=== PATIENT | female | born 1960 | race Caucasian/White ===

== ENCOUNTER 2024-01-06 09:43 | Outpatient (OUT) | payer OTHER, SELFPAY ==
--- NOTE | 2024-01-06 | ECG_ITS ---
The [facility] Test Date: 2024-01-06 Pat Name: Brenda Davis Department: Room: - Gender: Female [employer]: : 1960 Requested By: MARIANNE MENESES Order Number: [id number] Reading MD: MARIANNE MENESES Measurements Intervals [place] Rate: 72 P: 51 LA: 127 QRS: 47 QRSD: 81 T: 38 QT: 373 QTc: 409 Interpretive Statements SINUS RHYTHM LOW QRS VOLTAGE IN PRECORDIAL LEADS [QRS DEFLECTION < 1.0 mV IN CHEST LEADS] No previous ECG available for comparison Electronically Signed On 01-06-2024 20:09:15 EST by MARIANNE MENESES
--- NOTE | 2024-01-06 09:47 | XR_ITS ---
The [address] [address] Patient Name: BUCK ANDUJAR MRN: [id number] date: 1960 Sex: F Assigned Patient Location: [facility] Current Patient Location: [facility] Accession/Order Number: [id number] Exam Date: 01/06/2024 09:53 Report Date: 01/06/2024 10:35 At the request of: MARIANNE MENESES Procedure: XR chest 2V EXAM: Chest x-ray HISTORY: . Preop Exam For Internal Medicine Z01.818 . COMPARISON: None. TECHNIQUE: Frontal and lateral chest FINDINGS: Heart and vascularity are unremarkable. Lungs are free of focal infiltrates. Early spondylosis of the spine is noted. XR/XR chest 2V IMPRESSION: No acute heart or lung disease identified. Electronically authenticated by: AMISH NEWELL Date: 01/06/2024 10:35
[2024-01-06 10:57] LABS: Basophils Percent Auto 0.3 % (0.2-2.0); Eosinophils Absolute Auto 0.1 10^3/uL (0.0-0.7); Eosinophils Percent Auto 1.8 % (0.9-7.0); Hematocrit 44.5 % (36.0-48.0); Hemoglobin 14.5 g/dL (12.0-16.0); Immature Granulocytes Abs Auto 0.02 10^3/uL (0.00-0.03); Immature Granulocytes Pct Auto 0.3 % (0.0-0.5); Lymphocytes Absolute Auto 1.9 10^3/uL (1.2-3.8); Lymphocytes Percent Auto 26.1 % (20.5-60.0); Mean Corpuscular HGB Conc 32.6 g/dL (29.9-35.2); Mean Corpuscular Hemoglobin 29.9 pg (26.7-34.0); Mean Corpuscular Volume 91.8 fL (81.0-99.0); Mean Platelet Volume 9.5 fL (9.5-13.5); Monocytes Absolute Auto 0.8 10^3/uL (0.3-0.8); Monocytes Percent Auto 11.5 % (1.7-12.0); Neutrophils Absolute Auto 4.3 10^3/uL (1.4-6.5); Platelet Count 258 10^3/uL (150-450); Red Blood Count 4.85 10^6/uL (4.20-5.40); Red Cell Distribution Width 12.3 % (11.0-15.0); White Blood Count 7.2 10^3/uL (4.0-11.0)
[2024-01-06 11:56] LABS: Alanine Aminotransferase 29 U/L (14-59); Albumin Level 3.5 g/dL (3.4-5.0); Alkaline Phosphatase 100 U/L (46-116); Anion Gap 11.5; Aspartate Amino Transferase 15 U/L (15-37); BUN Creatinine Ratio 27.8; Bilirubin Total 0.5 mg/dL (0.2-1.0); Calcium 9.2 mg/dL (8.5-10.1); Carbon Dioxide 28.2 mmol/L (21.0-32.0); Chloride 106 mmol/L (98-107); Estimated GFR (African America >60 (>=60); Estimated GFR (Non-African Ame >60 (>=60); Globulin 3.5 g/dL; Glucose 95 mg/dL (74-106); Potassium 4.7 mmol/L (3.5-5.1); Sodium 141 mmol/L (136-145)
[2024-01-06 12:19] LABS: Bilirubin Urine NEGATIVE (NEGATIVE); Blood Urine TRACE-I (NEGATIVE); Clarity Urine CLEAR (CLEAR); Color Urine LT. YELLOW (YELLOW); Glucose Urine UA NEGATIVE (NEGATIVE); Ketones Urine NEGATIVE (NEGATIVE); Leukocyte Esterase Urine SMALL (NEGATIVE); Nitrite Urine NEGATIVE (NEGATIVE); Protein Urine NEGATIVE (NEG/TRACE); Specific Gravity Urine >=1.030 (1.005-1.025); Urobilinogen Urine 0.2 EU/dL (0.2-1.0)
[2024-01-06 12:38] LABS: Bacteria Urine TRACE #/HPF (NONE SEEN); Cast Seen? NONE SEEN #/LPF (NONE SEEN); Crystals Seen? None Seen #/HPF (None Seen); Mucus Urine TRACE (NONE SEEN); Squamous Epithelial Cell Urine MODERATE #/LPF (NONE/RARE)
== END 2024-01-06 09:44 | disposition home or self-care (01) ==
LOC: RAD 09:43
PROVIDERS: PCP Internal Medicine; Visit Provider Internal Medicine
DX: Z01.818 Encounter for other preprocedural examination (principal)
CPT/HCPCS: 36415; 71046; 80053; 81001; 85025; 93005

== ENCOUNTER 2025-01-18 11:56 | Outpatient (OUT) | payer MEDICARE, SELFPAY ==
--- OUTSIDE RECORDS SUMMARY | 2025-01-17 14:31 | XMS_ITS | CCD ---
Author Organization [facility] CliniSyid Care Team Providers Care Ribbon Weaver Name Role Phone ABIEL STARKS Unavailable Unavailable RAKAN NUÑEZ Unavailable Unavailable REQUEST, DR VITAL LISTED Admitting Unavaila ble REQUEST, NONE LISTED Attending Unavaila ble JOAQUIN, DR BLEDSOE Primary Care Unavailable REQUEST, NONE LISTED Consulting Unavaila ble Rakan Nuñez Unavailable Priscilla, Dr. Monreal Attending Provider DR LATIA NUÑEZ Primary Care Provider Unavailcoco NUÑEZ, DR JEFFERY Referring Provider Unavailable Priscilla, Dr. Monreal Attending Provider Priscilla, Dr. Monreal Referring Provider Priscilla, Dr. Monreal Other Provider RAKAN NUÑEZ Primary Care Provider Priscilla, Dr. Monreal Attending Provider Priscilla, Dr. Monreal Referring Provider Priscilla, Dr. Monreal Other Provider RAKAN NUÑEZ Primary Care Provider RAKAN NUÑEZ Primary Care Provider UnavailRAKAN Mulligan Referring Provider Unavailable Priscilla, Dr. Monreal Attending Provider DO Rakan Nuñez Primary Care Provider RAEJSH Mallory Attending Provider Rakan Nuñez DO Primary Care Provider Shawnee SOFTWOOD FALLER-CYuki Attending Provider Khalif Renee DO Attending Provider Rakan Nuñez Primary Care Unavailable Indira Renee Admitting Unavailable Indira Renee Attending Unavailable Rakan Nuñez Primary Care Unavailable Yuki Mallory Admitting Unavailable Yuki Mallory Attending Unavailable Rakan Nuñez Primary Care Unavailable Khalif Renee Admitting Unavailable Khalif Renee Attending Unavailable Rakan Nuñez Primary Care Unavailable Khalif Renee Admitting Unavailable Khalif Renee Attending Unavailable TAYETOKERI, INOCENCIA Primary Care Unavailable KREPSTOWSKI, INOCENCIA Referring Unavailable Ghazoul, Jocelin Attending Unavailable Ghazoul, Jocelin Attending Unavailable Ghazoul, Jocelin Referring Unavailable KREPSTOWSKI, INOCENCIA Primary Care Unavailable Ghazoul, Jocelin Attending Unavailable Ghazoul, Jocelin Attending Unavailable Ghazoul, Jocelin Attending Unavailable Ghazoul, Jocelin Consulting Unavailable KREPSTOWSKI, INOCENCIA Primary Care Unavailable Ghazoul, Jocelin Attending Unavailable Ghazoul, Jocelin Referring Unavailable Ghazoul, Jocelin Attending Unavailable Ghazoul, Jocelin Attending Unavailable Ghazoul, Jocelin Attending Unavailable KREPSTOWSKI, INOCENCIA Primary Care Unavailable KREPSTOWSKI, INOCENCIA Referring Unavailable Ghazoul, Jocelin Attending Unavailable Rakan Nuñez DO Primary Care Provider Khalif Renee DO Attending Provider Medications Current Medications Medication Drug Class(es) Dates Sig (Normalized) Sig (Original) aspirin 81 mg delayed release oral tablet (16 sources) Platelet Aggregation Inhibitor, Nonsteroidal Anti-inflammatory Drug Start: 09-07-2024 take 1 tablet by mouth once daily Aspirin 81 mg tablet,delayed release (DR/EC) Active 81 MG PO Daily September 06, 2024 11:00pm Start: 05-14-2023 take 1 tablet by rosaura th once daily Aspirin (Adult Aspirin Regimen) 81 mg tablet,delayed release (DR/EC) Active 81 MG PO DAILY May 14, 2023 12:00am levothyroxine sodium 0.112 mg oral tablet (20 sources) l-Thyroxine Start: 06-11-2024 End: 12-04-2024 take 1 tablet by mouth once daily Levothyroxine 112 mcg tablet Active 112 MCG PO Daily 90 December 04, 2024 8:57am Start: 05-14-2023 take 25 ug by mouth once daily Levothyroxine Active 25 MCG PO DAILY May 14, 2023 12:00am take 1 tablet by rosaura th once daily Levothyroxine Sodium 112 MCG TAKE 1 TABLET BY MOUTH EVERY DAY Active take 1 tablet by rosaura th once daily Levothyroxine Sodium 112 MCG TAKE 1 TABLET BY MOUTH EVERY DAY for 90 Active Rkpqcibjgvnw-Zu-Wjjp-Mineral s (8 sources) Start: 01-09-2024 take 1 tablet by mouth once daily Toumwgjxzrga-Ud-Kuix-Minerals Active 1 TABLET PO DAILY January 09, 2024 1:00am Start: 01-09-2024 take 1 tablet by rosaura th once daily Klinuksnwuoa-Kj-Flzl-Minerals Active 1 T ABLET PO DAILY January 09, 2024 12:00am omeprazole 20 mg delayed release oral capsule (20 sources) Proton Pump Inhibitor Start: 09-07-2024 Omeprazole 20 mg capsule,delayed release(DR/EC) Active 20 MG PO September 06, 2024 11:00pm Medication Name: Omeprazole; Note: Source Status: Not-TakingundefinedPRN; Provider: Joaquin Bledsoe ( ) Start: 11-25-2023 take 1 tablet by rosaura th once daily Omeprazole Magnesium (Prilosec Otc) 20 mg tablet,delayed release (DR/EC) Active 20 MG PO DAILY November 25, 2023 1:00am Omeprazole Not-T aking/PRN Omeprazole Not-T aking phentermine hydrochloride 37.5 mg oral capsule (9 sources) Sympathomimetic Amine Anorectic Start: 12-25-2023 take 1 capsule by mouth every twenty-four hours Adipex-P 37.5 MG 1 capsule Orally Once a day for 30 days Dec, Active Start: 11-11-2023 take 1 capsule by mo [facility] every twenty-four hours Adipex-P 37.5 MG 1 capsule Orally Once a day for 30 days Oct, Active Start: 10-01-2023 take 1 capsule by mo ut every twenty-four hours Adipex-P 37.5 MG 1 capsule Orally Once a day for 30 days Sep, Active Start: 08-20-2023 take 1 capsule by mo [facility] every twenty-four hours Adipex-P 37.5 MG 1 capsule Orally Once a day for 30 days Jul, Active Start: 07-11-2023 take 1 capsule by [facility] every twenty-four hours Adipex-P 37.5 MG 1 capsule Orally Once a day for 30 days Jun, Active Start: 06-02-2023 take 1 capsule by [facility] every twenty-four hours Adipex-P 37.5 MG 1 capsule Orally Once a day for 30 days May, Active Pneumatic Walking Boot (6 sources) Start: 09-02-2024 Pneumatic Walking Boot Active 0 .Route September 02, 2024 12:00am As directed Pneumatic Walking Boot unit (3 sources) Start: 09-02-2024 Pneumatic Walking Boot unit Active 0 .Route September 01, 2024 11:00pm As directed silver sulfADIAZINE 10 mg/ml topical cream (1 source) Sulfonamide Antibacterial Start: 03-17-2024 Silver Sulfadiazine (Silvadene) 1 % cream Active 1 APPLIC TOPICAL DAILY March 17, 2024 12:00am apply a 1.5 mm thickness 24 hr venlafaxine 150 mg extended release oral capsule (20 sources) Serotonin and Norepinephrine Reuptake Inhibitor Start: 01-03-2025 take 1 capsule by mouth once daily in the morning Venlafaxine 150 mg capsule,extended release 24hr Active 150 MG PO Every morning January 03, 2025 5:05pm Start: 03-15-2024 End: 01-03-2025 take 1 capsule by mouth once daily Venlafaxine 150 mg capsule,extended release 24hr Discontinued 0 .ROUTE .COMPLEX September 03, 2024 12:25pm January 03, 2025 5:05pm TAKE 1 CAPSULE BY MOUTH DAILY Start: 03-15-2024 End: 03-15-2024 take 1 capsule by mouth once daily Venlafaxine 150 mg capsule,extended release 24hr Discontinued 150 MG PO Daily March 14, 2024 11:00pm March 15, 2024 12:23pm take 1 capsule by [facility] once daily Venlafaxine HCl ER 150 mg TAKE 1 CAPSULE BY MOUTH DAILY Active Completed/Discontinued Medications Medication Drug Class(es) Dates Sig (Normalized) Sig (Original) acetaminophen 325 mg / oxyCODONE hydrochloride 5 mg oral tablet (8 sources) Opioid Agonist Start: 01-14-2024 End: 01-17-2024 take 1 tablet by mouth three times daily Oxycodone-Acetamino phen (Percocet) 5-325 mg tablet Discontinued 1 TABLET PO THREE TIMES A DAY 7 3 January 14, 2024 January 17, 2024 1:17am Aspir-81 (11 sources) Aspir-81 Not-Taking/PRN Aspir-81 Not-Pk ing benzonatate 100 mg oral capsule (11 sources) Non-narcotic Antitussive Start: 11-12-2016 take 1 capsule by mouth three times daily as needed Tessalon Perles 100 mg 1 capsule as needed Orally Three times a day for 7 days Oct, Not-Taking/PRN cephalexin 500 mg oral capsule (19 sources) Cephalosporin Antibacterial Start: 01-14-2024 End: 02-04-2024 take 500 mg by mouth twice daily Cephalexin Discontinued 500 MG PO TWICE A DAY January 14, 2024 1:00am February 04, 2024 10:16am Start: 03-05-2015 take 1 capsule by mo ut every six hours Cephalexin 500 MG 1 capsule Orally Four times a day for 10 day(s) Feb, Not-Taking/PRN predniSONE 10 mg oral tablet (11 sources) Start: 11-12-2016 take 1 tablet by mouth every twelve hours predniSONE 10 mg 1 tablet with food or milk Orally Twice a day for 5 day(s) Oct, Not-Taking/PRN Problems Active Problems Problem Classification Problem Date Documented Date Episodic/Chronic Anxiety disorders (14 sources) Generalized anxiety disorder; Translations: [Generalized anxiety disorder] Chronic Chronic obstructive pulmonary disease and bronchiectasis (11 sources) Bronchitis; Translations: [Bronchitis] Episodic Esophageal disorders (2 sources) Gastroesophageal reflux disease; Translations: [Gastro-esophageal reflux disease without esophagitis] 01-11-2025 Chronic Fracture of lower limb (20 sources) Fracture of lateral malleolus; Translations: [Displaced fracture of lateral malleolus of right fibula, initial encounter for closed fracture] Onset: 09-21-2024 09-02-2024 Episodic Immunizations and screening for infectious disease (11 sources) Exposure to communicable disease; Translations: [Exposure to the flu] Episodic Mood disorders (4 sources) Recurrent major depression in full remission; Translations: [Major depressive disorder, recurrent, in full remission] Chronic Other circulatory disease (1 source) Elevated blood-pressure reading without diagnosis of hypertension; Translations: [Elevated blood-pressure reading, without diagnosis of hypertension] 01-13-2025 Episodic Other circulatory disease (1 source) Elevated blood-pressure reading, without diagnosis of hypertension; Translations: [Elevated blood pressure reading without diagnosis of hypertension] 01-13-2025 Episodic Other endocrine disorders (9 sources) Disorder of parathyroid gland; Translations: [Disorder of parathyroid gland, unspecified] 05-14-2023 Chronic Other lower respiratory disease (11 sources) Cough; Translations: [Cough] Episodic Other non-traumatic joint disorders (9 sources) Ankle pain; Translations: [Pain in right ankle and joints of right foot] 09-02-2024 Episodic Other non-traumatic joint disorders (1 source) Pain in right ankle and joints of right foot; Translations: [Pain in right ankle and joints of right foot] Onset: 09-02-2024 Episodic Other nutritional; endocrine; and metabolic disorders (20 sources) Body mass index 30+ - obesity; Translations: [Obesity, unspecified] Chronic Other nutritional; endocrine; and metabolic disorders (2 sources) Obesity, unspecified; Translations: [Obesity, unspecified] Chronic Other nutritional; endocrine; and metabolic disorders (9 sources) Localized adiposity; Translations: [Localized adiposity] 05-14-2023 Chronic Other nutritional; endocrine; and metabolic disorders (20 sources) Localized adiposity; Translations: [Localized adiposity] Onset: 02-11-2024 05-14-2023 Chronic Other nutritional; endocrine; and metabolic disorders (11 sources) Obesity; Translations: [Other obesity due to excess calories] 01-13-2025 Chronic Other nutritional; endocrine; and metabolic disorders (6 sources) Other obesity due to excess calories Chronic Other nutritional; endocrine; and metabolic disorders (2 sources) Overweight Episodic Other screening for suspected conditions (not mental disorders or infectious disease) (2 sources) Encounter for screening for malignant neoplasm of colon; Translations: [Patient encounter status] Episodic Other skin disorders (9 sources) Atrophic condition of skin; Translations: [Atrophic disorder of skin, unspecified] 05-14-2023 Episodic Other skin disorders (20 sources) Atrophic disorder of skin, unspecified; Translations: [Unspecified hypertrophic and atrophic conditions of skin] Onset: 02-11-2024 05-14-2023 Episodic Residual codes; unclassified (9 sources) History finding; Translations: [Other specified health status] 05-14-2023 Episodic Residual codes; unclassified (2 sources) Procedure and treatment not carried out because of patient's decision for unspecified reasons; Translations: [Surgical or other procedure not carried out because of patient's decision] Episodic Residual codes; unclassified (7 sources) Patient encounter status; Translations: [Encounter for cosmetic surgery] 01-14-2024 Episodic Residual codes; unclassified (16 sources) Encounter for cosmetic surgery; Translations: [Other plastic surgery for unacceptable cosmetic appearance] Onset: 02-11-2024 01-14-2024 Episodic Residual codes; unclassified (16 sources) Other specified postprocedural states; Translations: [Other postprocedural status] 02-04-2024 Episodic Residual codes; unclassified (1 source) Mammogram declined; Translations: [Procedure and treatment not carried out because of patient's decision for unspecified reasons] 01-13-2025 Episodic Thyroid disorders (20 sources) Autoimmune hypothyroidism; Translations: [Hypothyroidism, unspecified] Chronic Past or Other Problems Problem Classification Problem Date Documented Da te Episodic/Chronic Varicose veins of lower extremity (1 source) Asymptomatic varicose veins of bilateral lower extremities; Translations: [Asymptomatic varicose veins of bilateral lower extremities] Onset: 10-08-2017 Episodic Results Test Name Value Interpretation Reference Range Facility XR ankle RT min 3V*on 2023 XR ankle RT min 3V* [facility] [address] [place] [address] XRay Report Signed Patient: Serena Davis MR #: [id number] : 1960 Acct:[id number] Age/Sex: 63 / F ADM Date: 11/09/24 Loc: [facility] [place] Room: Type: [facility] Attending Dr: Khalif Renee DO Copies to: Khalif Renee DO Ordering Provider: Khalif Renee DO Date of Service: 11/09/24 XR/XR ankle RT min 3V*: S82.61XD - Displaced fracture of lateral malleolus of rig... RIGHT ANKLE - 3 views CLINICAL DATA: Follow-up lateral malleolar fracture COMPARISON: 10/12/2024 AP, lateral and oblique views were obtained. There is osteopenia. A transverse fracture is seen at the lateral malleolus, unchanged in alignment from the prior. There is no significant interval callus formation. No new fracture or dislocation is seen. The talar dome is intact. There are calcaneal spurs. There is slight anterolateral soft tissue swelling. XR/XR ankle RT min 3V* IMPRESSION: STABLE LATERAL MALLEOLAR FRACTURE. Impression dictated by: Sandhya Downing M.D.11/09/2024 3:17 PM Dictation Location: [place] [address] Transcribed By: [facility] 11/09/241516 Dictated By: Sandhya Downing MD 11/09/241514 Signed By: 11/09/241516 Normal [facility] X-ray reportOrdered By: Jazzy Downing on 10-12-2024 Study report [facility] [address] [place] [address] XRay Report Signed Patient: Serena Davis MR#: [id number] : 1960 Acct:[id number] Age/Sex: 63 / F ADM Date: 4 Loc: [facility] [place] Room: Type: [facility] Attending Dr: Khalif Renee DO Copies to: Khalif Renee DO~ Ordering Provider: Khalif Renee DO Date of Service: 10/12/24 XR/XR ankle RT min 3V*: S82.61XD - Displaced fractureof lateral malleolus of rig... RIGHT ANKLE - 3 views CLINICAL DATA: Follow-up lateral malleolar fracture COMPARISON: 09/21/2024 AND 09/02/2024 AP, lateral and oblique views were obtained. A transverse fracture at the distal fibula is again seen, without change in alignment. There is some developing sclerosis. There is no new fracture or dislocation. The talar dome is intact. There is slight lateral soft tissue swelling. XR/XR ankle RT min 3V* IMPRESSION: STABLE HEALING FRACTURE AT THE LATERAL MALLEOLUS Impression dictated by: Sandhya Downing M.D.10/12/2024 3:45 PM Dictation Location: [facility]02 Transcribed By: GERI 10/12/24 1545 Dictated By: Sandhya Downing MD 10/12/241543 Signed By: 10/12/241544 [facility] Work Phone: XR ankle RT min 3V*on 2023 XR ankle RT min 3V* [facility] [place] [address] XRay Report Signed Patient: Serena Davis MR #: [id number] : 1960 Acct:[id number] Age/Sex: 63 / F ADM Date: 10/12/24 Loc: [facility] [place] Room: Type: [facility] Attending Dr: Khalif Renee DO Copies to: Khalif Renee DO Ordering Provider: Khalif Renee DO Date of Service: 10/12/24 XR/XR ankle RT min 3V*: S82.61XD - Displaced fracture of lateral malleolus of rig... RIGHT ANKLE - 3 views CLINICAL DATA: Follow-up lateral malleolar fracture COMPARISON: 09/21/2024 AND 09/02/2024 AP, lateral and oblique views were obtained. A transverse fracture at the distal fibula is again seen, without change in alignment. There is some developing sclerosis. There is no new fracture or dislocation. The talar dome is intact. There is slight lateral soft tissue swelling. XR/XR ankle RT min 3V* IMPRESSION: STABLE HEALING FRACTURE AT THE LATERAL MALLEOLUS Impression dictated by: Sandhya Downing M.D.10/12/2024 3:45 PM Dictation Location: [facility] Transcribed By: GERI 10/12/24 1545 Dictated By: Sandhya Downing MD 10/12/24 154 Signed By: 10/12/24 154 Normal [facility] XR ankle RT min 3V*on 2023 XR ankle RT min 3V* [facility] [place] [address] XRay Report Signed Patient: Serena Davis MR #: [id number] : 1960 Acct:[id number] Age/Sex: 63 / F ADM Date: 09/21/24 Loc: [facility] Room: Type: [facility] CLI Attending Dr: Yuki Mallory NP-C Copies to: DEONTE Banda Ordering Provider: DEONTE Banda Date of Service: 09/21/24 XR/XR ankle RT min 3V*: S82.61XA - Displaced fracture of lateral malleolus of rig... 3 views RIGHT ankle plain film COMPARISON: 09/02/24 HISTORY: Status post RIGHT distal fibular fracture ACUTE FINDINGS: Stable alignment. Subtle interval healing. DEGENERATIVE CHANGE: Unremarkable SOFT TISSUE FINDINGS: Unremarkable JOINT EFFUSION: None POSTOP CHANGES: None BONE MINERALIZATION: Adequate XR/XR ankle RT min 3V* IMPRESSION: Stable alignment with interval healing Impression dictated by: Yaya Tineo M.D.09/21/2024 5:28 PM Dictation Location: [place] [address] Transcribed By: [facility] 09/21/24 172 Dictated By: Yaya Tineo DO 09/21/241725 Signed By: 09/21/248 Normal [facility] XR ankle RT min 3V*on 2023 XR ankle RT min 3V* [facility] [address] XRay Report Signed Patient: Serena Davis MR #: [id number] : 1960 Acct:[id number] Age/Sex: 63 / F ADM Date: 09/02/24 Loc: [facility] Room: Type: [facility] CLI Attending Dr: Indira Renee APRN Copies to: Indira Renee APRN Ordering Provider: Indira Renee APRN Date of Service: 09/02/24 XR/XR ankle RT min 3V*: RIGHT ANKLE PAIN XR ankle RT min 3V* 09/02/2024 6:31 PM SIGNS AND SYMPTOMS: Injury to right ankle with pain and swelling predominantly laterally PROTOCOL: Frontal, lateral, and oblique radiographs of the right ankle COMPARISON: None FINDINGS: There is a minimally displaced fracture of the lateral malleolus with accompanying soft tissue swelling. The ankle mortise is preserved. No additional fractures are visualized. XR/XR ankle RT min 3V* IMPRESSION: There is a minimally displaced fracture of the lateral malleolus with accompanying soft tissue swelling. Impression dictated by: Harpal Laws M.D.09/02/2024 6:50 PM Dictation Location: [place] [address] Transcribed By: [facility] 09/02/241849 Dictated By: Harpal Laws II, MD 09/02/241848 Signed By: 09/02/241849 Normal [facility] Plastic Surgery Visit Report on 04-28-2024 Plastic Surgery Visit Report [facility] Plastic Reconstructive Surgery [address], [address] [place] [address] OFFICE VISIT Date of Service: 04/28/24 MR#: [id number] Acct: [id number] Name: SERENA DAVIS Rep #: [id number] : 1960 Provider: Dr. Jocelin chun MD Age/Sex: 63/F Location: [facility] Status: Signed Intake Vital Signs 03/31/24 09:49 04/28/24 10:06 Height 5 ft 1 in 5 ft 1 in Weight: 155 lb 157 lb 6 oz BMI 29.2 29.7 BP 144/83 H 151/83 H Blood Pressure Location Lt brachial Lt brachial Position Sitting Sitting Respiration 16 16 Pulse 83 78 Pulse Source Monitor Monitor Temp 97.7 F L 99.1 F Temp Source Oral Temporal Pulse Oximetry (%) 94 96 Oxygen Delivery Method room air room air Intake Visit Reasons: follow up Chief Complaint: post op abdominoplasty Is patient in pain?: No Allergies No Known Allergies Allergy (Verified 04/28/24 10:07) Nurse's Note: pt here for follow up for abdominoplasty-carmenio ns on exercise Subjective Details: Augustina comes in for recheck of the abdominoplasty done in January. She denies any problems. She continues to wear her compression garment. Objective Details: The incision is well-approximated. There is no evidence of infection. The fullness in the mid lower abdomen appears to have improved. She is encouraged to continue wearing the garment and to abstain from core exercises for a few more months. She may otherwise resume normal activity. Coding Level of Care Code Global Post Op Diagnoses Status post abdominoplasty Z98.890 [facility] Medical History (Updated 01/14/24 @ 11:[address] Jocelin Wells MD) Wears glasses Post-menopausal Alcohol use Arthritis Easy bruising Gastric reflux Non-smoker Leg cramps Parathyroid disorder Bone fracture Surgical History History of surgery Family History (Updated 05/14/23 @ 13:42 by Liana Cohen) Other Arthritis Diabetes Heart disease Hypertension Thyroid disorder Social History (Updated 11/25/23 @ 09:51 by Deborah Castillo) Smoking Status: Never smoker alcohol intake: current details: social use substance use type: does not use additional social history: Does Take Aspirin Daily Does Take Ibuprofen As Needed pt denies marijuana use, denies vaping, denies edibles, Assessment and Plan (No Qualifiers) Assessment and Plan (1) Status post abdominoplasty: Status: Acute Plan Details Additional Comments: I will see her back as needed and she is encouraged to call with any problems or questions. 04/28/24 1637 Date Jocelin Wells MD Cosigner Signature: Date (if applicable) CC: Normal [facility] Plastic Surgery Visit Report on 03-31-2024 Plastic Surgery Visit Report [facility] Plastic Reconstructive Surgery [address], [address] [place] [address] OFFICE VISIT Date of Service: 03/31/24 MR#: [id number] Acct: [id number] Name: SERENA DAVIS Rep #: [id number] : 1960 Provider: Dr. Jocelin chun MD Age/Sex: 63/F Location: [facility] Status: Signed Intake Vital Signs 03/17/24 10:33 03/31/24 09:49 Height 5 ft 1 in 5 ft 1 in Weight: 155 lb 6 oz 155 lb BMI 29.3 29.2 BP 145/81 H 144/83 H Blood Pressure Location Lt brachial Lt brachial Position Sitting Sitting Respiration 16 16 Pulse 82 83 Pulse Source Monitor Monitor Temp 98.5 F 97.7 F L Temp Source Oral Oral Pulse Oximetry (%) 99 94 Oxygen Delivery Method room air room air Intake Visit Reasons: FOLLOW UP Chief Complaint: post op abdominoplasty Is patient in pain?: No Allergies No Known Allergies Allergy (Verified 03/31/24 09:50) Medications aspirin 81 mg tablet,delayed release (Adult Aspirin Regimen) 81 mg PO DAILY 05/14/23 [History Confirmed 03/31/24] levothyroxine 25 mcg tablet 25 mcg PO DAILY THYROID 05/14/23 [History Confirmed 03/31/24] omeprazole magnesium 20 mg tablet,delayed release (Prilosec OTC) 20 mg PO DAILY GERD 11/25/23 [History Confirmed 03/31/24] qpicwugrxlfw-Hq-hvtf-m inerals 1 tab PO DAILY SUPPLEMENT 01/09/24 [History Confirmed 03/31/24] silver sulfadiazine 1 % topical cream (Silvadene) 1 applic topical DAILY #20 grams 03/17/24 [Rx Confirmed 03/31/24] Nurse's Note: pt here with friend for post op abdominoplasty-concern ed with healing. Subjective Details: Augustina comes in for recheck of the abdominoplasty done in January. She denies any problems. She states she has noticed no further drainage on the dressings. Objective Details: The incision is well-approximated. There is 1 small area which appears to be newly epithelialized in the midline. There is no drainage on the dressing. This was left off. When she stands, there is some protuberance of the lower abdomen which is likely consistent with edema. This is not appreciated when she is laying flat. I reviewed using the compression garment day and night. I reviewed obtaining a compression garment with tummy support. She can begin light exercise like walking and bicycling. I have told her to abstain from core exercises and or abdominal muscle strengthening. I have asked her to use Aquaphor on the incisions daily to help improve the appearance of the scar. Coding Level of Care Code Global Post Op Diagnoses Status post abdominoplasty Z98.890 [facility] Medical History (Updated 01/14/24 @ 11:[address] Jocelin Wells MD) Alcohol use Arthritis Bone fracture Easy bruising Gastric reflux Leg cramps Non-smoker Parathyroid disorder Post-menopausal Wears glasses Surgical History History of surgery Family History (Updated 05/14/23 @ 13:42 by Liana Cohen) Other Arthritis Diabetes Heart disease Hypertension Thyroid disorder Social History (Updated 11/25/23 @ 09:51 by Deborah Castillo) Smoking Status: Never smoker alcohol intake: current details: social use substance use type: does not use additional social history: Does Take Aspirin Daily Does Take Ibuprofen As Needed pt denies marijuana use, denies vaping, denies edibles, Assessment and Plan (No Qualifiers) Assessment and Plan (1) Status post abdominoplasty: Status: Acute Plan Details Additional Comments: Follow-up in 1 month for recheck 03/31/24 1607 Date Jocelin Wells MD [facility] Signature: Date (if applicable) CC: Normal [facility] Plastic Surgery Visit Report on 03-17-2024 Plastic Surgery Visit Report [facility] Surgery [address], [address] [place] [address] OFFICE VISIT Date of Service: 03/17/24 MR#: [id number] Acct: [id number] Name: SERENA DAVIS Rep #: [id number] : 1960 Provider: Dr. Jocelin chun MD Age/Sex: 63/F Location: [facility] Status: Signed Intake Vital Signs 03/03/24 10:05 03/17/24 10:33 Height 5 ft 1 in 5 ft 1 in Weight: 155 lb 4 oz 155 lb 6 oz BMI 29.3 29.3 BP 153/82 H 145/81 H Blood Pressure Location Lt brachial Lt brachial Position Sitting Sitting Respiration 16 16 Pulse 79 82 Pulse Source Monitor Monitor Temp 98.3 F 98.5 F Temp Source Temporal Oral Pulse Oximetry (%) 97 99 Oxygen Delivery Method room air room air Intake Visit Reasons: FOLLOW UP Chief Complaint: post op abdominoplasty Is patient in pain?: No Allergies No Known Allergies Allergy (Verified 03/17/24 10:34) Medications aspirin 81 mg tablet,delayed release (Adult Aspirin Regimen) 81 mg PO DAILY 05/14/23 [History Confirmed 03/17/24] levothyroxine 25 mcg tablet 25 mcg PO DAILY THYROID 05/14/23 [History Confirmed 03/17/24] omeprazole magnesium 20 mg tablet,delayed release (Prilosec OTC) 20 mg PO DAILY GERD 11/25/23 [History Confirmed 03/17/24] quyvkjkffswt-Qk-fcki-m inerals 1 tab PO DAILY SUPPLEMENT 01/09/24 [History Confirmed 03/17/24] silver sulfadiazine 1 % topical cream (Silvadene) 1 applic topical DAILY #20 grams 03/17/24 [Rx Confirmed 03/17/24] Nurse's Note: pt here for follow up abdominoplasty, concerned with wound healing Subjective Details: Augustina comes in for recheck of the abdominoplasty done on 01/30/2024. She is concerned about some small open areas on her incision. She admits to gaining approximately 9 pounds since her surgery. Objective Details: The patient is noted to have a small amount of bloody drainage at the site of a opening at the midline along the incision. The drainage is only about 4 to 5 mm in diameter on the gauze which was changed yesterday. The area is noted to be a shallow slit along the incision approximately 5 mm in diameter. Next to that is a scab in the same configuration. On the right lateral aspect of the incision is another scab without drainage. There is no evidence of infection. The area was dressed with Silvadene and dry gauze. I asked the patient to do this the same once a day. Coding Level of Care Code Global Post Op Diagnoses Status post abdominoplasty Z98.890 [facility] Medical History (Updated 01/14/24 @ 11:[address] Jocelin Wells MD) Alcohol use Arthritis Bone fracture Easy bruising Gastric reflux Leg cramps Non-smoker Parathyroid disorder Post-menopausal Wears glasses Surgical History History of surgery Family History (Updated 05/14/23 @ 13:42 by Liana Cohen) Other Arthritis Diabetes Heart disease Hypertension Thyroid disorder Social History (Updated 11/25/23 @ 09:51 by Deborah Castillo) Smoking Status: Never smoker alcohol intake: current details: social use substance use type: does not use additional social history: Does Take Aspirin Daily Does Take Ibuprofen As Needed pt denies marijuana use, denies vaping, denies edibles, Assessment and Plan (No Qualifiers) Assessment and Plan (1) Status post abdominoplasty: Status: Acute Medications: New silver sulfadiazine 1% (Silvadene) apply a 1.5 mm thickness 1 applic topical DAILY 20 grams 0RF Plan Details Additional Comments: I will see her back in 2 weeks for recheck. She is encouraged to call with any questions. 03/17/24 1610 Date Jocelin Wells MD Cosigner Signature: Date (if applicable) CC: Normal [facility] Plastic Surgery Visit Report on 03-03-2024 Plastic Surgery Visit Report [facility] Surgery [address], [address] [place] [address] OFFICE VISIT Date of Service: 03/03/24 MR#: [id number] Acct: [id number] Name: SERENA DAVIS Rep #: [id number] : 1960 Provider: Dr. Jocelin chun MD Age/Sex: 63/F Location: [facility] Status: Signed Intake Vital Signs 02/25/24 09:51 03/03/24 10:05 Height 5 ft 1 in 5 ft 1 in Weight: 154 lb 6 oz 155 lb 4 oz BMI 29.1 29.3 BP 130/78 H 153/82 H Blood Pressure Location Lt brachial Lt brachial Position Sitting Sitting Respiration 16 16 Pulse 80 79 Pulse Source Monitor Monitor Temp 98.4 F 98.3 F Temp Source Temporal Temporal Pulse Oximetry (%) 98 97 Oxygen Delivery Method room air room air Intake Visit Reasons: POST OP Chief Complaint: post op abdominoplasty Accompanied by: Friend Is patient in pain?: No Allergies No Known Allergies Allergy (Verified 03/03/24 10:06) Medications aspirin 81 mg tablet,delayed release (Adult Aspirin Regimen) 81 mg PO DAILY 05/14/23 [History Confirmed 03/03/24] levothyroxine 25 mcg tablet 25 mcg PO DAILY THYROID 05/14/23 [History Confirmed 03/03/24] omeprazole magnesium 20 mg tablet,delayed release (Prilosec OTC) 20 mg PO DAILY GERD 11/25/23 [History Confirmed 03/03/24] czjfvosprxxr-Pp-xssm-m inerals 1 tab PO DAILY SUPPLEMENT 01/09/24 [History Confirmed 03/03/24] Nurse's Note: pt here for post op abdominoplasty, no issues Subjective Details: Augustina comes in for recheck of her abdominoplasty done approximately 4 weeks ago. She denies any problems. Objective Details: The incision is improved since her last visit. There is a small amount of drainage on her dressing. The hole is smaller. I cleaned the site with peroxide and applied dry gauze. The remainder of the incisions are well-approximated and healing satisfactorily. She is in a spanx type garment. I reviewed wound care with her. Coding Level of Care Code Global Post Op Diagnoses Status post abdominoplasty Z98.890 [facility] Medical History (Updated 01/14/24 @ 11:[address] Jocelin Wells MD) Alcohol use Arthritis Bone fracture Easy bruising Gastric reflux Leg cramps Non-smoker Parathyroid disorder Post-menopausal Wears glasses Surgical History History of surgery Family History (Updated 05/14/23 @ 13:42 by Liana Cohen) Other Arthritis Diabetes Heart disease Hypertension Thyroid disorder Social History (Updated 11/25/23 @ 09:51 by Deborah Castillo) Smoking Status: Never smoker alcohol intake: current details: social use substance use type: does not use additional social history: Does Take Aspirin Daily Does Take Ibuprofen As Needed pt denies marijuana use, denies vaping, denies edibles, Assessment and Plan (No Qualifiers) Assessment and Plan (1) Status post abdominoplasty: Status: Acute Plan Details Additional Comments: She is to follow-up in 2 weeks. 03/03/24 1556 Date Jocelin Wells MD Cosigner Signature: Date (if applicable) CC: Normal [facility] Plastic Surgery Visit Report on 02-25-2024 Plastic Surgery Visit Report [facility] [address], [address] [place] [address] OFFICE VISIT Date of Service: 02/25/24 MR#: [id number] Acct: [id number] Name: SERENA DAVIS Rep #: [id number] : 1960 Provider: Dr. Jocelin chun MD Age/Sex: 63/F Location: [facility] Status: Signed Intake Vital Signs 02/11/24 10:29 02/25/24 09:51 Height 5 ft 1 in 5 ft 1 in Weight: 152 lb 2 oz 154 lb 6 oz BMI 28.7 29.1 BP 136/83 H 130/78 H Blood Pressure Location Lt brachial Lt brachial Position Sitting Sitting Respiration 16 16 Pulse 83 80 Pulse Source Monitor Monitor Temp 97.8 F 98.4 F Temp Source Oral Temporal Pulse Oximetry (%) 97 98 Oxygen Delivery Method room air room air Intake Visit Reasons: Follow up Chief Complaint: post op abdominoplasty Accompanied by: Other Is patient in pain?: No Allergies No Known Allergies Allergy (Verified 02/25/24 09:52) Medications aspirin 81 mg tablet,delayed release (Adult Aspirin Regimen) 81 mg PO DAILY 05/14/23 [History Confirmed 02/25/24] levothyroxine 25 mcg tablet 25 mcg PO DAILY THYROID 05/14/23 [History Confirmed 02/25/24] omeprazole magnesium 20 mg tablet,delayed release (Prilosec OTC) 20 mg PO DAILY GERD 11/25/23 [History Confirmed 02/25/24] ymksorqwlxxk-Jr-jtnd-m inerals 1 tab PO DAILY SUPPLEMENT 01/09/24 [History Confirmed 02/25/24] Nurse's Note: pt here post op abdominoplasty-no concerns Subjective Details: Patient here for recheck of the abdominoplasty done 4 weeks ago. She states she has showered twice since her last appointment and her dressing has only been changed twice. Objective Details: She has ABDs over the entire incision. There is some greenish-yellow drainage at the midpoint of the incision. There is a slightly eroded area at the midpoint of the incision and a small piece of extruded suture is removed. She has a 2 mm opening just to the right of this site which is deeper. Some minimal necrotic tissue was debrided. She seems to have a palpable seroma over the mid lower abdomen. She is wearing a binder because she said putting the spanks was too difficult. She is not wearing underwear. I asked her to shower daily using an antibacterial soap. She is to leave this area open to air dry. Then she can put dry gauze just on the open areas. I suggested she get some cotton underwear to keep the dressing in place and then began using the spanks garment since the binder is stretched out. I will see her back in a week for recheck. Coding Level of Care Code Global Post Op Diagnoses Status post abdominoplasty Z98.890 [facility] Medical History (Updated 01/14/24 @ 11:[address] Jocelin Wells MD) Alcohol use Arthritis Bone fracture Easy bruising Gastric reflux Leg cramps Non-smoker Parathyroid disorder Post-menopausal Wears glasses Surgical History History of surgery Family History (Updated 05/14/23 @ 13:42 by Liana Cohen) Other Arthritis Diabetes Heart disease Hypertension Thyroid disorder Social History (Updated 11/25/23 @ 09:51 by Deborah Castillo) Smoking Status: Never smoker alcohol intake: current details: social use substance use type: does not use additional social history: Does Take Aspirin Daily Does Take Ibuprofen As Needed pt denies marijuana use, denies vaping, denies edibles, Assessment and Plan (No Qualifiers) Assessment and Plan (1) Status post abdominoplasty: Status: Acute Plan Details Additional Comments: Follow-up in 1 week 02/25/24 1708 Date Jocelin Wells MD Cosigner Signature: Date (if applicable) CC: Normal [facility] Plastic Surgery Visit Report on 02-11-2024 Plastic Surgery Visit Report [facility] [address], [address] [place] [address] OFFICE VISIT Date of Service: 02/11/24 MR#: [id number] Acct: [id number] Name: SERENA DAVIS Rep #: [id number] : 1960 Provider: Dr. Jocelin chun MD Age/Sex: 63/F Location: [facility] Status: Signed Intake Vital Signs 11/25/23 09:46 02/04/24 10:14 02/11/24 10:29 Height 5 ft 1 in 5 ft 1 in 5 ft 1 in Weight: 152 lb 6 oz 152 lb 2 oz BMI 28.8 28.7 BP 120/73 136/83 H Blood Pressure Location Lt brachial Lt brachial Position Sitting Sitting Respiration 16 16 Pulse 79 83 Pulse Source Monitor Monitor Temp 97.4 F L 97.8 F Temp Source Oral Oral Pulse Oximetry (%) 94 97 Oxygen Delivery Method room air room air Intake Visit Reasons: post op #2 abdominoplasty Chief Complaint: post op #2 abdominoplasty Is patient in pain?: No Allergies No Known Allergies Allergy (Verified 02/11/24 10:30) Medications aspirin 81 mg tablet,delayed release (Adult Aspirin Regimen) 81 mg PO DAILY 05/14/23 [History Confirmed 02/11/24] levothyroxine 25 mcg tablet 25 mcg PO DAILY THYROID 05/14/23 [History Confirmed 02/11/24] omeprazole magnesium 20 mg tablet,delayed release (Prilosec OTC) 20 mg PO DAILY GERD 11/25/23 [History Confirmed 02/11/24] etgxwrplmdor-Xm-zpgl-m inerals 1 tab PO DAILY SUPPLEMENT 01/09/24 [History Confirmed 02/11/24] Nurse's Note: pt here for post op #2 abdominoplasty Subjective Details: Augustina denies any problems status post abdominoplasty. She has brought her spreadsheet and regarding the RICKEY drainage. Objective Details: The abdominal incision is well-approximated. The RICKEY drainage is noted to be serous and is less than 30 cc per 24 hours. The RICKEY was removed without difficulty. The dressing was replaced with ABDs and tape. I instructed her that she could begin showering on Friday. After which she is to replace the gauze and she can switch into a spanks garment instead of a binder if she wants to. She is encouraged to call with any problems otherwise I will see her in 2 weeks. Coding Level of Care Code Global Post Op Diagnoses Status post abdominoplasty Z98.890 [facility] Medical History (Updated 01/14/24 @ 11:[address] Jocelin Wells MD) Alcohol use Arthritis Bone fracture Easy bruising Gastric reflux Leg cramps Non-smoker Parathyroid disorder Post-menopausal Wears glasses Surgical History History of surgery Family History (Updated 05/14/23 @ 13:42 by Liana Cohen) Other Arthritis Diabetes Heart disease Hypertension Thyroid disorder Social History (Updated 11/25/23 @ 09:51 by Deborah Castillo) Smoking Status: Never smoker alcohol intake: current details: social use substance use type: does not use additional social history: Does Take Aspirin Daily Does Take Ibuprofen As Needed pt denies marijuana use, denies vaping, denies edibles, Assessment and Plan (No Qualifiers) Assessment and Plan (1) Status post abdominoplasty: Status: Acute Plan Details Additional Comments: Follow-up in 2 weeks. 02/11/24 1634 Date Jocelin Feliz Signature: Date (if applicable) CC: Normal [facility] Plastic Surgery Visit Report on 02-04-2024 Plastic Surgery Visit Report [facility] [address], [address] [place] [address] OFFICE VISIT Date of Service: 02/04/24 MR#: [id number] Acct: [id number] Name: SERENA DAVIS Rep #: [id number] : 1960 Provider: Dr. Jocelin chun MD Age/Sex: 63/F Location: [facility] Status: Signed Intake Vital Signs 11/25/23 09:46 01/30/24 06:30 02/04/24 10:14 Height 5 ft 1 in 5 ft 1 in 5 ft 1 in Weight: 152 lb 6 oz BMI 28.8 BP 120/73 Blood Pressure Location Lt brachial Position Sitting Respiration 16 Pulse 79 Pulse Source Monitor Temp 97.4 F L Temp Source Oral Pulse Oximetry (%) 94 Oxygen Delivery Method room air Intake Visit Reasons: post op #1 abdominoplasty Chief Complaint: post op #1 abdominoplasty Accompanied by: Friend Is patient in pain?: No Allergies No Known Allergies Allergy (Verified 02/04/24 10:16) Medications aspirin 81 mg tablet,delayed release (Adult Aspirin Regimen) 81 mg PO DAILY 05/14/23 [History Confirmed 02/04/24] levothyroxine 25 mcg tablet 25 mcg PO DAILY THYROID 05/14/23 [History Confirmed 02/04/24] omeprazole magnesium 20 mg tablet,delayed release (Prilosec OTC) 20 mg PO DAILY GERD 11/25/23 [History Confirmed 02/04/24] efiwetuebhux-Jy-yqhs-m inerals 1 tab PO DAILY SUPPLEMENT 01/09/24 [History Confirmed 02/04/24] Nurse's Note: pt here for post op abdominoplasty-no issues/concerns Subjective Details: Augustina presents status post abdominoplasty last week. She denies any problems. She states she has not taken any narcotic and is only taking anti-inflammatories. She has brought her spreadsheet on the RICKEY drainage. The right RICKEY has diminished in the drainage although the left one is still draining a moderate amount. Objective Details: The incision is well-approximated. There is no evidence of infection. The JPs have serous blood- tinged drainage. The right RICKEY was removed without difficulty. I cautioned the patient that she may have drainage from this hole until it seals. She is placed back in her abdominal binder after the dressing is changed. I have cautioned her about her activity and of encouraged her to continue walking hourly. Coding Level of Care Code Global Post Op Diagnoses Status post abdominoplasty Z98.890 [facility] Medical History (Updated 01/14/24 @ 11:[address] Jocelin Wells MD) Alcohol use Arthritis Bone fracture Easy bruising Gastric reflux Leg cramps Non-smoker Parathyroid disorder Post-menopausal Wears glasses Surgical History (Updated 02/04/24 @ 10:17 by Deborah Castillo) History of surgery Family History (Updated 05/14/23 @ 13:42 by Liana Cohen) Other Arthritis Diabetes Heart disease Hypertension Thyroid disorder Social History (Updated 11/25/23 @ 09:51 by Deborah Castillo) Smoking Status: Never smoker alcohol intake: current details: social use substance use type: does not use additional social history: Does Take Aspirin Daily Does Take Ibuprofen As Needed pt denies marijuana use, denies vaping, denies edibles, Assessment and Plan (No Qualifiers) Assessment and Plan (1) Status post abdominoplasty: Status: Acute Plan Details Additional Comments: I will see her back next week for recheck and she is encouraged to call with any problems. 02/04/24 1401 Date Jocelin Wells MD Cosigner Signature: Date (if applicable) CC: Normal [facility] Discharge Instructionon Discharge Instruction [facility] Medical Records Department [address] [place] [address] Instructions for Home/Discharge Instructions 01/30/24 1229 MR#: [id number] Acct: [id number] Name: SERENA DAVIS Rep #: [id number] : 1960 63 From: Jocelin Wells MD PCP: RAKAN NUÑEZ Status:[facility] Discharge Instructions Dressing / Incision Additional Dressing/Incision Instructions:: Follow instructions given in the office. Follow Up Care Please Follow Up With: Jocelin Wells MD When: In 1 week Test Results: Test results from this visit will be discussed in further detail at your follow-up appointment, if applicable. Discharge Plan Admission Attending Provider: Jocelin Wells Primary Care Provider: RAKAN NUÑEZ Discharge Orders/Prescriptions Prescriptions: No Action aspirin [Adult Aspirin Regimen] 81 mg tablet,delayed release (DR/EC) 81 mg PO DAILY Patient Comments: LAST DOSE TO BE 01/23/24 FOR SURGERY ON 01/30/24 levothyroxine 25 mcg tablet 25 mcg PO DAILY omeprazole magnesium [Prilosec OTC] 20 mg tablet,delayed release (DR/EC) 20 mg PO DAILY cephalexin 500 mg capsule 500 mg PO BID Qty: 14 0RF nqycpafoxiae-Nt-frwk-m inerals Tablet 1 tab PO DAILY Disposition Disposition (needs filled in before D/C Order can be placed): Home, Self Care 01/30/24 1232 Jocelin Wells MD CC: RAKAN NUÑEZ Signed Normal [facility] Operative Reporton 4 Operative Report [facility] Medical Records Department [address] [place] [address] Operative Report 01/30/24 1233 MR#: [id number] Acct: [id number] Name: SERENA DAVIS Rep #: [id number] : 1960 63 From: Jocelin Wells MD PCP: RAKAN NUÑEZ Status:[facility] Location: [place] [address]- Problems Associated Problem List Diagnoses (1) Encounter for cosmetic procedure: (2) Localized adiposity: (3) Atrophic skin: Report of Operation Date of Procedure: 01/30/24 Pre-Operative Diagnosis: Abdominal skin laxity, localized adiposity, encounter for cosmetic surgery Post-Operative Diagnosis: Same Surgery/Procedure Performed:: Abdominoplasty including muscle plication and translocation of the umbilicus Surgeon: Jocelin Wells semiautomatic stitcher operator: EVELYN CLARKEnude model Type of Anesthesia: General Specimen's removed: Skin and adipose tissue?discarded Drains: RICKEY x 2 Estimated Blood Loss (mL): 50 cc Description of Procedure: The patient presents today desirous of abdominoplasty. The expected pre-, intra-, postoperative course was reviewed. The potential risk and complications of surgery were reviewed which include but are not exclusive of bleeding, infection, pain, numbness, asymmetry, scar tissue, skin necrosis, the need for further surgery, DVT, and even . She is marked in the preop holding area prior to surgery. The patient is brought to the operating room and placed under general anesthesia in the supine position. The abdomen is prepped and draped in the usual sterile fashion. Care is taken to pad all pressure points, insert a Johnson catheter, a warming blanket, and sequential compression stockings. We initially began with making the premarked incision. This is carried down through the subcutaneous tissue to the abdominal fascia. Dissection then continued cephalad to the umbilicus. A circumferential incision was made around the umbilicus and care is taken to preserve a sleeve of adipose tissue to facilitate vascularity of the umbilicus. Dissection then continued cephalad to the xiphoid area. The wound is irrigated with antibiotic solution and checked for hemostasis which is controlled with cautery. We then assessed the muscular fascia. The patient has not had children in the past however she is noted to have some diastases in the lower abdomen. Therefore the medial margins of the rectus abdominis muscle are marked and an imbrication is performed using aeuyuw-bi-flfrx Nurolon sutures followed by a running nylon suture. A Vicryl suture was used to plicate the umbilicus to the abdominal fascia. The patient was then placed in a semi-Fowlers position and the skin to be removed is demarcated. The skin and fat are then removed in the premarked area. Hemostasis is controlled with cautery. RICKEY drains x 2 are then brought out through separate stab incision and laid beneath the flap. The wound edges are then initially stapled in position. With a satisfactory contour noted, the wound is closed. Initially Vicryl sutures were used to approximate some of the deep subcutaneous tissue. The incision lines are then approximated in 3 layers using a running strata fix suture. Skin edges are approximated with a subcuticular suture. A midline longitudinal incision is made for the umbilicus. This is approximately 2.5 cm in length. The incision is made and carried down through the subcutaneous tissue. The umbilicus is identified and brought up through the incision. It is then plicated to the fascial suture allowing imbrication of the umbilicus. The skin edges of the umbilicus were then approximated with a running subcuticular Monocryl suture. The incisions are injected with quarter percent plain Marcaine and some Marcaine is injected within the drains. The wounds are dressed with Xeroform, ABDs and tape. She is placed in an abdominal binder. She tolerated the procedure well was taken to the recovery room in an awake and stable condition. Needle and sponge counts are correct. Complications None Admit VTE Documentation VTE Mechan Device Prophylaxis: SCD's 01/30/24 1240 Cosigner Signature (if applicable): CC: RAKAN NUÑEZ; Dr. Jocelin Wells MD Signed Normal [facility] Activated partial thrombopla stin time (aPTT) in platelet poor plasma by coagulation aOrdered By: Paul Dunbar on 01-14-2024 aPTT Coag (PPP) [Time] 25.4 s 24.1-36.2 [facility] Basophil percentageOrdered B y: Paul Dunbar on 01-14-2024 Bilirubin [Mass/Vol] 0.50 mg/dL 0.20-1.00 [facility] Comment on above: For patients on eltr ombopag therapy, use of Dimension [place] TBIL is not recommended. Protein [Mass/Vol] 7.1 g/dL 6.4-8.[address] [facility] Direct bilirubinOrdered By: Paul Dunbar on 01-14-2024 Bilirubin.direct [Mass/Vol] 0.15 mg/dL 0.00-0.30 [facility] Laboratory - Chemistry and C hemistry - challengeOrdered By: Paul Dunbar on 01-14-2024 ALP [Catalytic activity/Vol] 106 U/L - [facility] ALT [Catalytic activity/Vol] 27 U/L [facility] Globulin (S) [Mass/Vol] 3.4 g/dL 2.2-4.2 [facility] Laboratory - CoagulationOrde red By: Paul Dunbar on 01-14-2024 INR Coag (Bld) [Relative time] 0.9 {INR} [facility] PT Coag (PPP) [Time] 12.4 s 11.7-14.9 [facility] Liver Profileon 01-14-2024 Albumin [Mass/Vol] 3.7 g/dL Normal 3.2-5.[address] [facility] Comment on above: Performed By: #### L 300.3900, L300.4310, L501.9520, L500.3400 #### [facility] Laboratory [address] [place], [address] ALK P 106 U/L Normal -117 [facility] Comment on above: Performed By: #### L 300.3900, L300.4310, L501.9520, L500.3400 #### [facility] [address] [place], [address] ALT [Catalytic activity/Vol] 27 U/L Normal - [facility] Comment on above: Performed By: #### L 300.3900, L300.4310, L501.9520, L500.3400 #### [facility] [address] [place], [address] AST [Catalytic activity/Vol] 19 U/L Normal 15-37 [facility] Comment on above: Performed By: #### L 300.3900, L300.4310, L501.9520, L500.3400 #### [facility] [address] [place], [address] Bilirubin [Mass/Vol] 0.50 mg/dL Normal 0.20-1.00 [facility] Comment on above: Result Comment: For patients on eltrombopag therapy, use of Dimension [place] TBIL is not recommended. Performed By: #### L 300.3900, L300.4310, L501.9520, L500.3400 #### [facility] [address] [place], [address] Bilirubin.direct [Mass/Vol] 0.15 mg/dL Normal 0.00-0.30 [facility] Comment on above: Performed By: #### L 300.3900, L300.4310, L501.9520, L500.3400 #### [facility] [address] [place], [address] Globulin (S) [Mass/Vol] 3.4 g/dL Normal 2.2-4.2 [facility] Comment on above: Performed By: #### L 300.3900, L300.4310, L501.9520, L500.3400 #### [facility] [address] [place], [address] T PROT 7.1 g/dL Normal 6.4-8.2 [facility] Comment on above: Performed By: #### L 300.3900, L300.4310, L501.9520, L500.3400 #### [facility] [address] [place], [address] Partial Thromboplast Timeon 01-14-2024 aPTT Coag (Bld) [Time] 25.4 s Normal 24.1-36.2 [facility] Comment on above: Performed By: #### L 300.3900, L300.1080, L501.8762, [id number] #### [facility] [address] [place], [address] Plastic Surgery Visit Report on 01-14-2024 Plastic Surgery Visit Report [facility] Plastic Reconstructive Surgery [address], [address] [place] [address] OFFICE VISIT Date of Service: 01/14/24 MR#: [id number] Acct: [id number] Name: SERENA DAVIS SCOOBY Rep #: [id number] : 1960 Provider: Dr. Jocelin chun MD Age/Sex: 63/F Location: [facility] Status: Signed Intake Vital Signs 11/25/23 09:46 12/30/23 10:52 01/14/24 10:43 Height 5 ft 1 in 5 ft 1 in 5 ft 1 in Weight: 159 lb 8 oz 153 lb 8 oz BMI 30.1 29.0 BP 138/82 H 142/85 H Blood Pressure Location Lt brachial Lt brachial Position Sitting Sitting Respiration 16 16 Pulse 80 80 Pulse Source Monitor Monitor Temp 97.6 F L 97.7 F L Temp Source Oral Oral Pulse Oximetry (%) 94 Oxygen Delivery Method room air Intake Visit Reasons: preop #2 abdominoplasty Chief Complaint: pre op #2 abdominoplasty Accompanied by: Caregiver Allergies No Known Allergies Allergy (Verified 01/14/24 10:44) Medications aspirin 81 mg tablet,delayed release (Adult Aspirin Regimen) 81 mg PO DAILY 05/14/23 [History Confirmed 01/14/24] levothyroxine 25 mcg tablet 25 mcg PO DAILY THYROID 05/14/23 [History Confirmed 01/09/24] omeprazole magnesium 20 mg tablet,delayed release (Prilosec OTC) 20 mg PO DAILY GERD 11/25/23 [History Confirmed 01/09/24] poosqthbqmam-Vv-cffw-m inerals 1 tab PO DAILY SUPPLEMENT 01/09/24 [History Confirmed 01/09/24] cephalexin 500 mg capsule 500 mg PO BID #14 caps 01/14/24 [Rx Confirmed 01/14/24] oxycodone-acetaminophe n 5 mg-325 mg tablet (Percocet) 1 tab PO TID PRN pain 3 days #7 tabs 01/14/24 [Rx Confirmed 01/14/24] Nurse's Note: pt here with caregiver for preop #2 abdominoplasty PFSH Medical History (Updated 01/14/24 @ 11:[address] Jocelin Wells MD) Alcohol use Arthritis Bone fracture Easy bruising Gastric reflux Leg cramps Non-smoker Parathyroid disorder Post-menopausal Wears glasses Surgical History (Updated 01/09/24 @ 16:29 by Milagros Fierro) History of surgery Family History (Updated 05/14/23 @ 13:42 by Liana Cohen) Other Arthritis Diabetes Heart disease Hypertension Thyroid disorder Social History (Updated 11/25/23 @ 09:51 by Deborah Castillo) Smoking Status: Never smoker alcohol intake: current details: social use substance use type: does not use additional social history: Does Take Aspirin Daily Does Take Ibuprofen As Needed pt denies marijuana use, denies vaping, denies edibles, HPI preop #2 abdominoplasty Details: Augustina comes in today with caregiver to review the instructions prior to surgery. She has obtained her medical clearance. She is still taking aspirin but is going to be stopping within 2 weeks of the surgery. Exam Details Patient with redundant skin of her abdomen as well as a small panniculus and ptosis of the mons area. There are no abdominal scars or palpable hernias. The incisions and scars were reviewed with her. She is aware that she may have a small vertical scar from the previous location of the umbilicus. The expected pre-, intra-, postoperative course were reviewed. The potential risk and complications of surgery were reviewed which include but are not exclusive of bleeding, infection, pain, numbness, asymmetry, scar tissue, skin necrosis, the need for further surgery, DVT, and even . The use of the drain was reviewed as well as the medications which are Keflex and Percocet. I reviewed the use of a postop garment with her. She will be sleeping in a recliner after surgery. Coding Level of Care Code Cosmetic Consult Diagnoses Encounter for cosmetic procedure Z41.1 Localized adiposity E65 Atrophic skin L90.9 Assessment and Plan (No Qualifiers) Assessment and Plan (1) Encounter for cosmetic procedure: Status: Acute (2) Localized adiposity: Status: Acute (3) Atrophic skin: Status: Acute Medications: New cephalexin 500 mg PO BID 14 caps 0RF oxycodone-acetaminophe n 5-325 mg (Percocet) 1 TAB PO TID 3 days PRN 7 tabs 0RF pain E65 - Localized adiposity, L90.9 - Atrophic disorder of skin, unspecified Plan Details Additional Comments: We will be proceeding with surgery in the near future. 01/14/24 1643 Date Jocelin Lindseyer Signature: Date (if applicable) CC: Normal [facility] Prothrombin Time w/INRon INR Coag (PPP) [Relative time] 0.9 {INR} Normal [facility] Comment on above: Performed By: #### L 300.3900, L300.4310, L501.9520, L500.3400 #### [facility] [address] [place], [place], [address] PT Coag (PPP) [Time] 12.4 s Normal 11.7-14.9 [facility] Comment on above: Performed By: #### L 300.3900, L300.4310, L501.9520, L500.3400 #### [facility] [address] [place], [place], [address] Serum or plasma thyroid stim ulating hormone (TSH) measurement (units/volume)Ordered By: Paul Dunbar on 01-14-2024 TSH Qn 0.01 uIU/mL 0.358-3.74 [facility] Thin prep Papanicolaou smear with manual screeningOrdered By: Paul Dunbar on 01-14-2024 Thin prep Papanicolaou smear with manual screening 3.7 g/dL 3.2-5.0 [facility] Thin prep Papanicolaou smear with manual screening 19 U/L 15-37 [facility] Thyroid Stim Hormone (TSH)on 01-14-2024 TSH 0.01 uIU/mL Low 0.358-3.74 [facility] Comment on above: Performed By: #### L 300.3900, L300.4310, L501.9520, L500.3400 #### [facility] [address] [place], [address] CBC AUTO DIFFon 02-03-2023 BASO # 0.0 103/ul Normal 0.0-0.1 [facility] Comment on above: Performed By: #### D ATCBC #### [facility] [address] [address] [address] Pili Mcnamara Basophils/100 WBC (Bld) 0.6 % Normal 0.2-2.0 [facility] Comment on above: Performed By: #### D ATCBC #### [facility] [address] [address] [address] Pili Mcnamara EO # 0.2 103/ul Normal 0.0-0.7 [facility] Comment on above: Performed By: #### D ATCBC #### [facility] [address] [address] [address] Pili Mcnamara Eosinophils/100 WBC (Bld) 2.8 % Normal 0.9-7.0 [facility] Comment on above: Performed By: #### D ATCBC #### [facility] [address] [address] [address] Pili Mcnamara Erythrocyte distribution width (RBC) [Ratio] 12.4 % Normal 11.0-15.0 [facility] Comment on above: Performed By: #### D ATCBC #### [facility] [address] [address] [address] Pili Mcnamara Hematocrit (Bld) [Volume fraction] 45.8 % Normal 36.0-48.0 [facility] Comment on above: Performed By: #### D ATCBC #### [facility] [address] [address] [address] Pili Mcnamara Hemoglobin (Bld) [Mass/Vol] 15.5 g/dL Normal 12.0-16.0 [facility] Comment on above: Performed By: #### D ATCBC #### [facility] [address] [place] [address] Dr. Pili Mcnamara IG # 0.01 10e3/ul Normal 0.00-0.03 [facility] Comment on above: Performed By: #### D ATCBC #### [facility] [address] [place] [address] Dr. Pili Mcnamara IG % 0.2 % Normal 0.0-0.5 [facility] Comment on above: Performed By: #### D ATCBC #### [facility] [address] [place] [address] Dr. Pili Mcnamara LYMPH # 1.9 103/ul Normal 1.2-3.8 [facility] Comment on above: Performed By: #### D ATCBC #### [facility] [address] [place] [address] Dr. Pili Mcnamara Lymphocytes/100 WBC (Bld) 29.5 % Normal 20.5-60.0 [facility] Comment on above: Performed By: #### D ATCBC #### [facility] [address] [place] [address] Dr. Pili Mcnamara MCH (RBC) [Entitic mass] 29.8 pg Normal 26.7-34.0 [facility] Comment on above: Performed By: #### D ATCBC #### [facility] [address] [place] [address] Dr. Pili Mcnamara MCHC (RBC) [Mass/Vol] 33.8 g/dL Normal 29.9-35.2 [facility] Comment on above: Performed By: #### D ATCBC #### [facility] [address] [place] [address] Dr. Pili Mcnamara MCV (RBC) [Entitic vol] 87.9 fL Normal 81.0-99.0 [facility] Comment on above: Performed By: #### D ATCBC #### [facility] [address] [place] [address] Dr. Pili Mcnamara MONO # 0.7 103/ul Normal 0.3-0.8 [facility] Comment on above: Performed By: #### D ATCBC #### [facility] [address] [place] [address] Dr. Pili Mcnamara Monocytes/100 WBC (Bld) 10.9 % Normal 1.7-12.0 [facility] Comment on above: Performed By: #### D ATCBC #### [facility] [address] [place] [address] Dr. Pili Mcnamara NEUT # 3.5 103/ul Normal 1.4-6.5 [facility] Comment on above: Performed By: #### D ATCBC #### [facility] [address] [place] [address] Dr. Pili Mcnamara Neutrophils/100 WBC (Bld) 56.0 % Normal 43.0-75.0 [facility] Comment on above: Performed By: #### D ATCBC #### [facility] [address] [place] [address] Dr. Pili Mcnamara Platelet mean volume (Bld) [Entitic vol] 9.1 fL Critically low 9.5-13.5 [facility] Comment on above: Performed By: #### D ATCBC #### [facility] [address] [place] [address] Dr. Pili Mcnamara PLT 291 103/ul Normal 150-450 [facility] Comment on above: Performed By: #### D ATCBC #### [facility] [address] [place] [address] Dr. Pili Mcnamara RBC 5.21 106/ul Normal 4.20-5.40 [facility] Comment on above: Performed By: #### D ATCBC #### [facility] [address] [place] [address] Dr. Pili Mcnamara WBC 6.3 103/ul Normal 4.0-11.0 [facility] Comment on above: Performed By: #### D ATCBC #### [facility] [address] [place] [address] Dr. Pili Mcnamara OTILIA - TSHon 02-03-2023 TSH 0.088 uIU/mL Critically low 0.358-3.740 [facility] Comment on above: Performed By: #### D ATBMP, DATTSH #### [facility] [address] [place] [address] Dr. Pili Mcnamara TSH RANGE SEE BELOW Normal [facility] Comment on above: Result Comment: <0.3 4 UIU/ml HYPERTHYROID 0.34-5.60 UIU/ml EUTHYROID >5.60 UIU/ml HYPOTHYROID Performed By: #### D ATBMP, DATTS #### [facility] [address] [place] [address] Dr. Pili Mcnamara OTILIA- BMP WITH LIPIDon 2022 Anion gap [Moles/Vol] 12.7 mmol/L Normal [facility] Comment on above: Performed By: #### D ATBMP, DATTSH #### [facility] [address] [place] [address] Dr. Pili Mcnamara Calcium [Mass/Vol] 9.2 mg/dL Normal 8.5-10.1 [facility] Comment on above: Performed By: #### D ATBMP, DATTSH #### [facility] [address] [place] [address] Dr. Pili Mcnamara Chloride [Moles/Vol] 106 mmol/L Normal 98-107 [facility] Comment on above: Performed By: #### D ATBMP, DATTSH #### [facility] [address] [place] [address] Dr. Pili Mcnamara Cholesterol [Mass/Vol] 229 mg/dL Critically high <=200 [facility] Comment on above: Performed By: #### D ATBMP, DATTSH #### [facility] [address] [address] [address] Pili Mcnamara Cholesterol in HDL [Mass/Vol] 73 mg/dL Critically high 40-60 [facility] Comment on above: Performed By: #### D ATBMP, DATTSH #### [facility] [address] [address] [address] Pili Mcnamara Cholesterol in LDL [Mass/Vol] 140.6 mg/dL Normal [facility] Comment on above: Performed By: #### D ATBMP, DATTSH #### [facility] [address] [place] [address] Dr. Pili Mcnamara CO2 [Moles/Vol] 27.6 mmol/L Normal 21.0-32.0 [facility] Comment on above: Performed By: #### D ATBMP, DATTSH #### [facility] [address] [place] [address] Dr. Pili Mcnamara Creatinine [Mass/Vol] 0.73 mg/dL Normal 0.55-1.02 [facility] Comment on above: Performed By: #### D ATBMP, DATTSH #### [facility] [address] [place] [address] Dr. Pili Mcnamara EGFR-AF [place]IZ[place] >60 Normal >=60 [facility] Comment on above: Performed By: #### D ATBMP, DATTSH #### [facility] [address] [place] [address] Dr. Pili Mcnamara EGFR-NON AF CITIZEN OF [place] >60 Normal >=60 [facility] Comment on above: Performed By: #### D ATBMP, DATTSH #### [facility] [address] [place] [address] Dr. Pili Mcnamara HDL NORMAL > or = 60 mg/dl - LO W CARDIOVASCULAR RISK <40 mg/dl - HIGH CARDIOVASCULAR RISK Normal [facility] Comment on above: Performed By: #### D ATBMP, DATTSH #### [facility] [address] [place] [address] Dr. Pili Mcnamara LDL CALC NORMAL SEE BELOW Normal [facility] Comment on above: Result Comment: <100 mg/dl OPTIMAL 100 - 129 mg/dl NEAR OR ABOVE OPTIMAL 130 - 159 mg/dl BORDERLINE HIGH 160 - 189 mg/dl HIGH >190 mg/dl VERY HIGH Performed By: #### D ATBMP, DATTSH #### [facility] [address] [place] [address] Dr. Pili Mcnamara Potassium [Moles/Vol] 4.3 mmol/L Normal 3.5-5.1 [facility] Comment on above: Performed By: #### D ATBMP, DATTSH #### [facility] [address] [address] [address] Pili Mcnamara Sodium [Moles/Vol] 142 mmol/L Normal 136-145 [facility] Comment on above: Performed By: #### D ATBMP, DATTSH #### [facility] [address] [place] [address] Dr. Pili Mcnamara Triglyceride [Mass/Vol] 77 mg/dL Normal <=150 [facility] Comment on above: Performed By: #### D [facility], DATTSH #### [facility] [address] [place] [address] Dr. Pili Mcnamara Urea nitrogen [Mass/Vol] 20.0 mg/dL Critically high 7.0-18.0 [facility] Comment on above: Performed By: #### D ATBMP, DATTSH #### [facility] [address] [place] [address] Dr. Pili Mcnamara Urea nitrogen/Creatinine [Mass ratio] 27.4 mg/mg Normal [facility] Comment on above: Performed By: #### D ATBMP, DATTSH #### [facility] [address] [place] [address] Dr. Pili Mcnamara VLDL CALC 15.4 mg/dL Normal [facility] Comment on above: Performed By: #### D ATBMP, DATTSH #### [facility] [address] [place] [address] Dr. Pili Mcnamara GLYCOHEMOGLOBIN A1Con 2022 ADA RECOMMENDATION SEE BELOW Normal [facility] Comment on above: Result Comment: ADA RECOMMENDED LIMIT 4.0 - 6.0 ADA THERAPEUTIC TARGET < 7.0 ACTION SUGGESTED > 7.0 Performed By: #### D ATA1C #### [facility] [address] [address] [address] Pili Mcnamara Glucose [Mass/Vol] 108 mg/dL Critically high 74-106 [facility] Comment on above: Performed By: #### D ATA1C #### [facility] [address] [address] [address] Pili Mcnamara Performed By: #### D ATBMP, DATTSH #### [facility] [address] [address] [address] Pili Mcnamara HbA1c (Bld) [Mass fraction] 5.4 % Normal 4.5-6.2 [facility] Comment on above: Performed By: #### D ATA1C #### [facility] [address] [address] [address] Pili Mcnamara CNOVon 10-08-2017 CNOV Office Visit (VASSFT) SERENA DAVIS ([id number]) 1960 [facility] [place]03/15/17 2:40 PM ABIEL STARKS During your visit today, we recorded the following information about you: Pulse Respiration Blood pressure Weight 69/minute 16/minute 170/95 78 kg Height 1.575 Kell Starks MD 10/08/2017 3:09 PM [facility] Department of Cardiovascular MedicineOUTPATIENT VISIT DATE October 08, 2017OUTPATIENT VISIT TYPENEWPRIMARY CARE PHYSICIAN:Rakan Nuñez MD ([facility])[address] [place], [place] [address]Phone: Zkt: [phone] PHYSICIANRakan Nuñez MD ([facility])[address] [facility] [place] [address]HVI[place] COMPLAINT:No chief complaint on file.HISTORY OF PRESENT ILLNESS:Brenda Davis was referred for consultation by Dr. Nuñez. Opinionsand recommendations in this consultation will be transmitted back to thereferring physician by Epic notes or via mail.Ms. Davis is a 56 year old female who is seen today for evaluation ofright leg varicose veins with associated discomfort.This has been going on for a few years.She has been wearing compression stockings, these do not alleviate herdiscomfort.Nonsmoke r. Denies hx of DVTs. 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.DUS performed at [facility]: this was negative for insufficiency ineither the GSV or SSV, did note some thrombosed right varicose veinsPAST MEDICAL HISTORYDiagnosis Date- Anxiety- Dyspnea- GERD (gastroesophageal reflux disease)- Hypothyroid- Varicose vein of legNo past surgical history on file.SOCIAL HISTORYSocial HistorySubstance Use Topics- Smoking status: Never Smoker- Smokeless tobacco: Not on file- Alcohol use Not on fileNo family history on file.ALLERGIES:ALLERGI ESNo Known AllergiesMEDICATIONS:a spirin, enteric coated (ASPIRIN, ENTERIC COATED) 81 mg EC tablet Take 81 mg bymouth once daily.omeprazole (PRILOSEC) 20 mg capsule Take 20 mg by mouth once daily.venlafaxine (EFFEXOR) 75 mg tablet Take 75 mg by mouth twice daily.levothyroxine (LEVOXYL) 125 mcg tablet Take 125 mcg by mouth daily beforebreakfast.REVIEW OF SYSTEMS:GENERAL: no acute distressAll other ROS: negativeI personally interviewed, confirmed and edited the above information asobtained by others.PHYSICAL EXAMINATION:BP 170/95 (BP Site: Left Arm, BP Position: Sitting, BP Cuff Size: RegularAdult) Pulse 69 Resp 16 Ht 157.5 cm (5' 2ANDquot;) Wt 78 kg (172 lb) SpO2 96% BMI 31.46 kg/d9Cgmnhpo appearance: well nourished, alert and cooperative individual, in noacute distress.Neck: no bruitsPulmonary: Lungs clear to auscultation bilaterally.Coronary: regular rate and regular rhythmLower Extremities: Feet and toes warmPalp DP, PT pulsesCluster of reticular veins involving the anterior right legCARDIOVASCULAR MEDICINE TESTING:There were no tests performed for review.IMPRESSION/PLAN :Ms. Davis is a 56 year old female with reticular veins of the right legcausing discomfort and inflammation.Risks and benefits of right leg foams sclerotherapy, discussed including butnot limited to risk of systemic embolization, stroke, extravasation and wounddevelopment. She denies known history of PFO. She wishes to think about whethershe would like to proceed. She will call the office back.Instructed to continue use of compressions stockings 20-30mmHg in interim. Legelevation when at rest.Have CD from [facility] sent to office for review.YOSELYN Montanoefjeremy Provider: RAKAN NUÑEZ [[id number]]Allergies As of Date: 10/08/2017(No Known Allergies)Date Reviewed: 10/08/2017Reviewed by: Abiel Starks - Fully AssessedPrimary Visit Diagnosis:Varicose veins of left lower extremity with inflammation [I83.12] Comment:right legPrescriptions as of 10/08/2017 Sig: ASPIRIN 81 MG TABLET,DELAYED * Take 81 mg by mouth once karolina* OMEPRAZOLE 20 MG CAPSULE,MICK* Take 20 mg by mouth once karolina* VENLAFAXINE 75 MG TABLET Take 75 mg by mouth twice denny* LEVOTHYROXINE 125 MCG TABLET Take 125 mcg by mouth daily b*Problem List As Of Date: 10/08/2017(None)Follow -up and Disposition History RecordedEncounter Number: [id number] Status:Closed by ABIEL STARKS MD on 10/08/17 [facility] PROGRESSon 10-08-2017 PROGRESS HNO ID: [id number]: Abiel StarksSer: (none)Author Type: PhysicianType: Progress NotesFiled: 10/08/2017 3:09 PMNote Text:Heart and Vascular InstituteAhmeek and Mahi Crane Department of Cardiovascular MedicineOUTPATIENT VISIT DATE October 08, 2017OUTPATIENT VISIT TYPENEWPRIMARY CARE PHYSICIAN:Rakan Nuñze MD ([facility])[address] [place], [place] [address]Hkfcn: [phone]: [phone] PHYSICIANBewilbert Nuñez MD ([facility])[address] [place] [address]BHWYJ COMPLAINT:No chief complaint on file.HISTORY OF PRESENT ILLNESS:Brenda Davis was referred for consultation by Dr. Nuñez.Opinions and recommendations in this consultation will be transmitted backto the referring physician by Epic notes or via mail.Ms. Davis is a 56 year old female who is seen today for evaluationof right leg varicose veins with associated discomfort.This has been going on for a few years.She has been wearing compression stockings, these do not alleviate herdiscomfort.Nonsmoke r. Denies hx of DVTs. 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omeprazole (PRILOSEC) 20 mg capsule Take 20 mg by mouth once daily.venlafaxine (EFFEXOR) 75 mg tablet Take 75 mg by mouth twice daily.levothyroxine (LEVOXYL) 125 mcg tablet Take 125 mcg by mouth daily beforebreakfast.REVIEW OF SYSTEMS:GENERAL: no acute distressAll other ROS: negativeI personally interviewed, confirmed and edited the above information asobtained by others.PHYSICAL EXAMINATION:BP 170/95 (BP Site: Left Arm, BP Position: Sitting, BP Cuff Size: RegularAdult) Pulse 69 Resp 16 Ht 157.5 cm (5' 2 ) Wt 78 kg (172 lb) SpO2 96% BMI 31.46 kg/v8Jmmrkqp appearance: well nourished, alert and cooperative individual, inno acute distress.Neck: no bruitsPulmonary: Lungs clear to auscultation bilaterally.Coronary: regular rate and regular rhythmLower Extremities: Feet and toes warmPalp DP, PT pulsesCluster of reticular veins involving the anterior right legCARDIOVASCULAR MEDICINE TESTING:There were no tests performed for review.IMPRESSION/PLAN :Ms. Davis is a 56 year old female with reticular veins of theright leg causing discomfort and inflammation.Risks and benefits of right leg foams sclerotherapy, discussed includingbut not limited to risk of systemic embolization, stroke, extravasationand wound development. She denies known history of PFO. She wishes tothink about whether she would like to proceed. She will call the officeback.Instructed to continue use of compressions stockings 20-30mmHg in interim.Leg elevation when at rest.Have CD from [facility] sent to office for review.Abiel Starks MD Normal [facility] Vital Signs Date Time Vital Sign Value Performing Clinician Facility 01-13-2025 11:27-0500 Body height 154.94 cm Archevos DO Work Phone: [facility] 01-13-2025 11:27-0500 Body mass index (BMI) [Ratio] 33.3 kg/m2 Rakan eyeQ DO Work Phone: [facility] 01-13-2025 11:27-0500 Body weight 79.94 kg Rakan eyeQ DO Work Phone: [facility] 01-13-2025 11:27-0500 Diastolic blood pressure 84 mm[Hg] Rakan Ball DO Work Phone: [facility] 01-13-2025 11:27-0500 Heart rate 80 /min Archevos DO Work Phone: [facility] 01-13-2025 11:27-0500 Respiratory rate 12 /min Rakan eyeQ DO Work Phone: [facility] 01-13-2025 11:27-0500 Systolic blood pressure 154 mm[Hg] Archevos DO Work Phone: [facility] 09-02-2024 18:26-0400 Body height 156.21 cm [facility] 09-02-2024 18:26-0400 Body mass index (BMI) [Ratio] 30.7 kg/m2 [facility] 09-02-2024 18:26-0400 Body temperature 97.2 [degF] [facility] 09-02-2024 18:26-0400 Body weight 74.89 kg [facility] 09-02-2024 18:26-0400 Diastolic blood pressure 83 mm[Hg] [facility] 09-02-2024 18:26-0400 Heart rate 105 /min [facility] 09-02-2024 18:26-0400 Respiratory rate 21 /min [facility] 09-02-2024 18:26-0400 SaO2% (BldA) [Mass fraction] 99 % [facility] 09-02-2024 18:26-0400 Systolic blood pressure 137 mm[Hg] [facility] 03-31-2024 09:49-0400 Body height 154.[address] Jocelin Wells Work Phone: [facility] 03-31-2024 09:49-0400 Body mass index (BMI) [Ratio] 29.2 kg/m2 Dr. Jocelin Wells Work Phone: [facility] 03-31-2024 09:49-0400 Body temperature 97.7 [degF] Dr. Jocelin Wells Work Phone: [facility] 03-31-2024 09:49-0400 Body weight 70.[address] Jocelin Wells Work Phone: [facility] 03-31-2024 09:49-0400 Diastolic blood pressure 83 mm[Hg] Dr. Jocelin Wells Work Phone: [facility] 03-31-2024 09:49-0400 Heart rate 83 /min Dr. Jocelin Wells Work Phone: [facility] 03-31-2024 09:49-0400 Respiratory rate 16 /min Dr. Jocelin Wells Work Phone: [facility] 03-31-2024 09:49-0400 SaO2% (BldA) [Mass fraction] 94 % Dr. Jocelin Wells Work Phone: [facility] 03-31-2024 09:49-0400 Systolic blood pressure 144 mm[Hg] Dr. Jocelin Wells Work Phone: [facility] 03-17-2024 10:33-0400 Body height 154.[address] Jocelin Wells Work Phone: [facility] 03-17-2024 10:33-0400 Body mass index (BMI) [Ratio] 29.3 kg/m2 Dr. Jocelin Wells Work Phone: [facility] 03-17-2024 10:33-0400 Body temperature 98.5 [degF] Dr. Jocelin Wells Work Phone: [facility] 03-17-2024 10:33-0400 Body weight 70.[address] Jocelin Wells Work Phone: [facility] 03-17-2024 10:33-0400 Diastolic blood pressure 81 mm[Hg] Dr. Jocelin Wells Work Phone: [facility] 03-17-2024 10:33-0400 Heart rate 82 /min Dr. Jocelin Wells Work Phone: [facility] 03-17-2024 10:33-0400 Respiratory rate 16 /min Dr. Jocelin eWlls Work Phone: [facility] 03-17-2024 10:33-0400 SaO2% (BldA) [Mass fraction] 99 % Dr. Jocelin Wells Work Phone: [facility] 03-17-2024 10:33-0400 Systolic blood pressure 145 mm[Hg] Dr. Jocelin Wells Work Phone: [facility] 03-03-2024 10:05-0400 Body height 154.[address] Jocelin Wells Work Phone: [facility] 03-03-2024 10:05-0400 Body mass index (BMI) [Ratio] 29.3 kg/m2 Dr. Jocelin Wells Work Phone: [facility] 03-03-2024 10:05-0400 Body temperature 98.3 [degF] Dr. Jocelin Wells Work Phone: [facility] 03-03-2024 10:05-0400 Body weight 70.[address] Jocelin Wells Work Phone: [facility] 03-03-2024 10:05-0400 Diastolic blood pressure 82 mm[Hg] Dr. Jocelin Wells Work Phone: [facility] 03-03-2024 10:05-0400 Heart rate 79 /min Dr. Jocelin Wells Work Phone: [facility] 03-03-2024 10:05-0400 Respiratory rate 16 /min Dr. Jocelin Wells Work Phone: [facility] 03-03-2024 10:05-0400 SaO2% (BldA) [Mass fraction] 97 % Dr. Jocelin Wells Work Phone: [facility] 03-03-2024 10:05-0400 Systolic blood pressure 153 mm[Hg] Dr. Jocelin Wells Work Phone: [facility] 02-25-2024 09:51-0400 Body height 154.[address] Jocelin Wells Work Phone: [facility] 02-25-2024 09:51-0400 Body mass index (BMI) [Ratio] 29.1 kg/m2 Dr. Jocelin Wells Work Phone: [facility] 02-25-2024 09:51-0400 Body temperature 98.4 [degF] Dr. Jocelin Wells Work Phone: [facility] 02-25-2024 09:51-0400 Body weight 70.[address] Jocelin Wells Work Phone: [facility] 02-25-2024 09:51-0400 Diastolic blood pressure 78 mm[Hg] Dr. Jocelin Wells Work Phone: [facility] 02-25-2024 09:51-0400 Heart rate 80 /min Dr. Jocelin Wells Work Phone: [facility] 02-25-2024 09:51-0400 Respiratory rate 16 /min Dr. Jocelin Wells Work Phone: [facility] 02-25-2024 09:51-0400 SaO2% (BldA) [Mass fraction] 98 % Dr. Jocelin Wells Work Phone: [facility] 02-25-2024 09:51-0400 Systolic blood pressure 130 mm[Hg] Dr. Jocelin Wells Work Phone: [facility] 02-11-2024 10:29-0400 Body height 154.[address] Jocelin Wells Work Phone: [facility] 02-11-2024 10:29-0400 Body mass index (BMI) [Ratio] 28.7 kg/m2 Dr. Jocelin Wells Work Phone: [facility] 02-11-2024 10:29-0400 Body temperature 97.8 [degF] Dr. Jocelin Wells Work Phone: [facility] 02-11-2024 10:29-0400 Body weight [address] Jocelin Wells Work Phone: [facility] 02-11-2024 10:29-0400 Diastolic blood pressure 83 mm[Hg] Dr. Jocelin Wells Work Phone: [facility] 02-11-2024 10:29-0400 Heart rate 83 /min Dr. Jocelin Wells Work Phone: [facility] 02-11-2024 10:29-0400 Respiratory rate 16 /min Dr. Jocelin Wells Work Phone: [facility] 02-11-2024 10:29-0400 SaO2% (BldA) [Mass fraction] 97 % Dr. Jocelin Wells Work Phone: [facility] 02-11-2024 10:29-0400 Systolic blood pressure 136 mm[Hg] Dr. Jocelin Wells Work Phone: [facility] 02-04-2024 10:14-0400 Body height 154.[address] Jocelin Wells Work Phone: [facility] 02-04-2024 10:14-0400 Body mass index (BMI) [Ratio] 28.8 kg/m2 Dr. Jocelin Wells Work Phone: [facility] 02-04-2024 10:14-0400 Body temperature 97.4 [degF] Dr. Jocelin Wells Work Phone: [facility] 02-04-2024 10:14-0400 Body weight 69.[address] Jocelin Wells Work Phone: [facility] 02-04-2024 10:14-0400 Diastolic blood pressure 73 mm[Hg] Dr. Jocelin Wells Work Phone: [facility] 02-04-2024 10:14-0400 Heart rate 79 /min Dr. Jocelin Wells Work Phone: [facility] 02-04-2024 10:14-0400 Respiratory rate 16 /min Dr. Jocelin Wells Work Phone: [facility] 02-04-2024 10:14-0400 SaO2% (BldA) [Mass fraction] 94 % Dr. Jocelin Wells Work Phone: [facility] 02-04-2024 10:14-0400 Systolic blood pressure 120 mm[Hg] Dr. Jocelin Wells Work Phone: [facility] 01-30-2024 17:22-0500 Body temperature 98.1 [degF] Dr. Jocelin Wells Work Phone: [facility] 01-30-2024 17:22-0500 Diastolic blood pressure 65 mm[Hg] Dr. Jocelin Wells Work Phone: [facility] 01-30-2024 17:22-0500 Heart rate 77 /min Dr. Jocelin Wells Work Phone: [facility] 01-30-2024 17:22-0500 Respiratory rate 16 /min Dr. Jocelin Wells Work Phone: [facility] 01-30-2024 17:22-0500 SaO2% (BldA) [Mass fraction] 94 % Dr. Jocelin Wells Work Phone: [facility] 01-30-2024 17:22-0500 Systolic blood pressure 127 mm[Hg] Dr. Jocelin Wells Work Phone: [facility] 01-30-2024 06:30-0500 Body height 154.[address] Jocelin Wells Work Phone: [facility] 01-30-2024 06:30-0500 Body mass index (BMI) [Ratio] 29.5 kg/m2 Dr. Jocelin Wells Work Phone: [facility] 01-30-2024 06:30-0500 Body weight [address] Jocelin Wells Work Phone: [facility] 01-14-2024 10:43-0500 Body height 154.[address] Jocelin Wells Work Phone: [facility] 01-14-2024 10:43-0500 Body mass index (BMI) [Ratio] 29 kg/m2 Dr. Jocelin Wells Work Phone: [facility] 01-14-2024 10:43-0500 Body temperature 97.7 [degF] Dr. Jocelin Wells Work Phone: [facility] 01-14-2024 10:43-0500 Body weight 69.[address] Jocelin Wells Work Phone: [facility] 01-14-2024 10:43-0500 Diastolic blood pressure 85 mm[Hg] Dr. Jocelin Wells Work Phone: [facility] 01-14-2024 10:43-0500 Heart rate 80 /min Dr. Jocelin Wells Work Phone: [facility] 01-14-2024 10:43-0500 Respiratory rate 16 /min Dr. Jocelin Wells Work Phone: [facility] 01-14-2024 10:43-0500 Systolic blood pressure 142 mm[Hg] Dr. Jocelin Wells Work Phone: [facility] 01-02-2024 09:00-0500 Body height 156.21 cm Rakan eyeQ Other [employer] Other 01-02-2024 09:00-0500 Body mass index (BMI) [Ratio] 28.92 kg/m2 Rakan Ball Other [employer] Other 01-02-2024 09:00-0500 Body weight 70.58 kg Rakan Ball Other [employer] Other 01-02-2024 09:00-0500 Diastolic blood pressure 84 mm[Hg] Rakan Ball Other [employer] Other 01-02-2024 09:00-0500 Respiratory rate 12 /min Rakan Ball Other [employer] Other 01-02-2024 09:00-0500 Systolic blood pressure 131 mm[Hg] Rakan Ball Other [employer] Other 12-30-2023 10:52-0500 Body mass index (BMI) [Ratio] 29.5 kg/m2 Dr. Jocelin Wells Work Phone: [facility] 12-30-2023 10:52-0500 Body temperature 97.4 [degF] Dr. Jocelin Wells Work Phone: [facility] 12-30-2023 10:52-0500 Body weight 70.[address] Jocelin Wells Work Phone: [facility] 12-30-2023 10:52-0500 Diastolic blood pressure 83 mm[Hg] Dr. Jocelin Wells Work Phone: [facility] 12-30-2023 10:52-0500 Heart rate 85 /min Dr. Jocelin Wells Work Phone: [facility] 12-30-2023 10:52-0500 Respiratory rate 16 /min Dr. Jocelin Wells Work Phone: [facility] 12-30-2023 10:52-0500 SaO2% (BldA) [Mass fraction] 98 % Dr. Jocelin Wells Work Phone: [facility] 12-30-2023 10:52-0500 Systolic blood pressure 146 mm[Hg] Dr. Jocelin Wells Work Phone: [facility] 12-25-2023 14:50-0500 Body height 156.21 cm Rakan Ball Other [employer] Other 12-25-2023 14:50-0500 Body mass index (BMI) [Ratio] 28.59 kg/m2 Rakan Ball Other [employer] Other 12-25-2023 14:50-0500 Body weight 69.76 kg Rakan Ball Other [employer] Other 12-25-2023 14:50-0500 Diastolic blood pressure 74 mm[Hg] Rakan Ball Other [employer] Other 12-25-2023 14:50-0500 Systolic blood pressure 122 mm[Hg] Rakan Ball Other [employer] Other 12-03-2023 09:00-0500 Body height 156.21 cm Rakan Ball Other [employer] Other 12-03-2023 09:00-0500 Body mass index (BMI) [Ratio] 29.18 kg/m2 Rakan Ball Other [employer] Other 12-03-2023 09:00-0500 Body weight 71.22 kg Rakan Ball Other [employer] Other 12-03-2023 09:00-0500 Diastolic blood pressure 76 mm[Hg] Rakan Ball Other [employer] Other 12-03-2023 09:00-0500 Respiratory rate 12 /min Rakan Ball Other [employer] Other 12-03-2023 09:00-0500 Systolic blood pressure 116 mm[Hg] Rakan Ball Other [employer] Other 11-25-2023 09:46-0500 Body mass index (BMI) [Ratio] 30.1 kg/m2 Dr. Jocelin Wells Work Phone: [facility] 11-25-2023 09:46-0500 Body temperature 97.6 [degF] Dr. Jocelin Wells Work Phone: [facility] 11-25-2023 09:46-0500 Body weight 72.[address] Jocelin Wells Work Phone: [facility] 11-25-2023 09:46-0500 Diastolic blood pressure 82 mm[Hg] Dr. Jocelin Wells Work Phone: [facility] 11-25-2023 09:46-0500 Heart rate 80 /min Dr. Jocelin Wells Work Phone: [facility] 11-25-2023 09:46-0500 Respiratory rate 16 /min Dr. Jocelin Wells Work Phone: [facility] 11-25-2023 09:46-0500 SaO2% (BldA) [Mass fraction] 94 % Dr. Jocelin Wells Work Phone: [facility] 11-25-2023 09:46-0500 Systolic blood pressure 138 mm[Hg] Dr. Jocelin Wells Work Phone: [facility] 11-10-2023 14:34-0500 Body height 156.21 cm Rakan Ball Other [employer] [facility] [employer] Other 11-10-2023 14:34-0500 Body mass index (BMI) [Ratio] 29.29 kg/m2 Rakan Ball Other [employer] Other 11-10-2023 14:34-0500 Body weight 71.49 kg Rakan Ball Other [employer] Other 11-10-2023 14:34-0500 Diastolic blood pressure 74 mm[Hg] Rakan Ball Other [employer] Other 11-10-2023 14:34-0500 Systolic blood pressure 142 mm[Hg] Rakan Ball Other [employer] Other 09-26-2023 15:09-0400 Body height 156.21 cm Rakan Ball Other [employer] Other 09-26-2023 15:09-0400 Body mass index (BMI) [Ratio] 28.92 kg/m2 Rakan Ball Other [employer] Other 09-26-2023 15:09-0400 Body weight 70.58 kg Rakan Ball Other [employer] Other 09-26-2023 15:09-0400 Diastolic blood pressure 78 mm[Hg] Rakan Ball Other [employer] Other 09-26-2023 15:09-0400 Systolic blood pressure 122 mm[Hg] Rakan Ball Other [employer] Other 08-20-2023 14:45-0400 Body height 156.21 cm Rakan Ball Other [employer] Other 08-20-2023 14:45-0400 Body mass index (BMI) [Ratio] 29.18 kg/m2 Rakan Ball Other [employer] Other 08-20-2023 14:45-0400 Body weight 71.22 kg Rakan Ball Other [employer] Other 08-20-2023 14:45-0400 Diastolic blood pressure 72 mm[Hg] Rakan Ball Other [employer] Other 08-20-2023 14:45-0400 Systolic blood pressure 112 mm[Hg] Rakan Ball Other [employer] Other 07-11-2023 12:15-0400 Body height 156.21 cm Rakan Ball Other [employer] Other 07-11-2023 12:15-0400 Body mass index (BMI) [Ratio] 29.78 kg/m2 Rakan Ball Other [employer] Other 07-11-2023 12:15-0400 Body weight 72.67 kg Rakan Ball Other [employer] Other 07-11-2023 12:15-0400 Diastolic blood pressure 80 mm[Hg] Rakan Ball Other [employer] Other 07-11-2023 12:15-0400 Systolic blood pressure 130 mm[Hg] Rakan Ball Other [employer] Other 05-28-2023 12:54-0400 Body weight 74.3 kg Rakan Ball Other [employer] Other 05-28-2023 12:54-0400 Diastolic blood pressure 77 mm[Hg] Rakan Ball Other [employer] Other 05-28-2023 12:54-0400 Systolic blood pressure 143 mm[Hg] Rakan Ball Other [employer] Other 05-14-2023 13:51-0400 Body height 154.[address] JOAQUIN Majano [facility] 05-14-2023 13:51-0400 Body mass index (BMI) [Ratio] 31.8 kg/m2 DR NUÑEZ [facility] 05-14-2023 13:51-0400 Body temperature 98.7 [degF] DR JOAQUIN Majano [facility] [place] 05-14-2023 13:51-0400 Body weight 76.[address] JOAQUIN Majano [facility] 05-14-2023 13:51-0400 Diastolic blood pressure 80 mm[Hg] DR JOAQUIN Majano [facility] 05-14-2023 13:51-0400 Heart rate 79 /min DR JOAQUIN Majano [facility] 05-14-2023 13:51-0400 Respiratory rate 16 /min DR JOAQUIN Majano [facility] 05-14-2023 13:51-0400 SaO2% (BldA) [Mass fraction] 97 % DR NUÑEZ [facility] 05-14-2023 13:51-0400 Systolic blood pressure 138 mm[Hg] DR JOAQUIN Majano [facility] 02-07-2023 15:30-0400 Body height 156.21 cm Rakan Joaquin Other [employer] Other 02-07-2023 15:30-0400 Body mass index (BMI) [Ratio] 33.98 kg/m2 Rakan Joaquin Other [employer] Other 02-07-2023 15:30-0400 Body weight 82.92 kg Rakan Nuñez Other [employer] Other 02-07-2023 15:30-0400 Diastolic blood pressure 99 mm[Hg] Rakan Nuñez Other [employer] Other 02-07-2023 15:30-0400 Respiratory rate 12 /min Rakan Nuñez Other [employer] Other 02-07-2023 15:30-0400 Systolic blood pressure 163 mm[Hg] Rakan Nuñez Other [employer] Other Encounters Encounter Date Encounter Type Care Provider Facility Start: 01-13-2025 End: 01-13-2025 ambulatory Rakan Joaquin DO Work Phone: [facility] Work Phone: Start: 01-13-2025 End: 01-13-2025 Patient encounter procedure Rakan [facility]quin DO [facility] Start: 11-09-2024 End: 11-09-2024 Patient encounter procedure Rakan Ball DO Work Phone: [facility] Work Phone: Start: 11-09-2024 End: 11-09-2024 ambulatory Rakan Ball Facility:[facility] Start: 10-12-2024 End: 10-12-2024 ambulatory Rakan Ball DO Work Phone: [facility] Work Phone: Start: 10-12-2024 End: 10-12-2024 Patient encounter procedure Rakan Ball DO Work Phone: [facility] Work Phone: Start: 09-21-2024 End: 09-21-2024 ambulatory DO Rakan Ball Work Phone: [facility] Work Phone: Start: 09-21-2024 End: 09-21-2024 Patient encounter procedure DO Rakan Ball Work Phone: [facility] Work Phone: Start: 09-07-2024 End: 09-07-2024 ambulatory [facility] Work Phone: Start: 09-07-2024 End: 09-07-2024 Patient encounter procedure [facility] Work Phone: Start: 09-02-2024 End: 09-02-2024 Patient encounter procedure [facility] Work Phone: Start: 09-02-2024 End: 09-02-2024 ambulatory Rakan Ball [facility] Work Phone: Start: 06-11-2024 Non-patient / Non-visit [facility] Work Phone: Start: 04-28-2024 End: 04-28-2024 ambulatory Jocelin Priscilla Facility:[facility] Start: 03-31-2024 End: 03-31-[address] Jocelin Wells Work Phone: [facility] Work Phone: Start: 03-31-2024 End: 03-31-[address] Jocelin Wells Work Phone: [facility] Work Phone: Start: 03-17-2024 End: 03-17-[address] Jocelin Wells Work Phone: [facility] Work Phone: Start: 03-17-2024 End: 03-17-[address] Jocelin Wells Work Phone: [facility] Work Phone: Start: 03-03-2024 End: 03-03-[address] Jocelin Wells Work Phone: [facility] Work Phone: Start: 03-03-2024 End: 03-03-[address] Jocelin Wells Work Phone: [facility] Work Phone: Start: 02-25-2024 End: 02-25-[address] Jocelin Wells Work Phone: [facility] Work Phone: Start: 02-25-2024 End: 02-25-[address] Jocelin Wells Work Phone: [facility] Work Phone: Start: 02-11-2024 End: 02-11-[address] Jocelin Wells Work Phone: [facility] Work Phone: Start: 02-11-2024 End: 02-11-[address] Jocelin Wells Work Phone: [facility] Work Phone: Start: 02-11-2024 Encounter for other preprocedural examination Jocelin Wells [facility] Start: 02-04-2024 End: 02-04-[address] Jocelin Wells Work Phone: [facility] Work Phone: Start: 02-04-2024 End: 02-04-[address] Jocelin Wells Work Phone: [facility] Work Phone: Start: 01-30-2024 ambulatory Jocelin Wells Facility :[facility] Start: 01-30-2024 Non-patient / Non-visit Dr. Pratt Work Phone: [facility] Start: 01-30-2024 End: 01-30-2024 Admission to same day surgery center Dr. Jocelin Wells Work Phone: [facility] Start: 01-30-2024 End: 01-30-[address] Jocelin Wells Work Phone: [facility] Work Phone: Start: 01-14-2024 End: 01-14-[address] Jocelin Wells Work Phone: [facility] Work Phone: Start: 01-14-2024 End: 01-14-2024 ambulatory Jocelin Wells [facility] Work Phone: Start: 01-02-2024 End: 01-02-2024 ambulatory Rakan Nuñez Other [employer] Other Start: 01-02-2024 Encounter for other preprocedural examination Rakan Nuñez [facility] Start: 01-02-2024 Office outpatient vi sit 25 minutes Rakan Nuñez [facility] Start: 12-30-2023 End: 12-30-[address] Jocelin Wells Work Phone: [facility] Work Phone: Start: 12-25-2023 End: 12-25-2023 ambulatory Rakan Nuñez Other [employer] Other Start: 12-25-2023 Telephone encounter Rakan Nuñez [facility] Start: 12-03-2023 End: 12-03-2023 ambulatory Rakan Nuñez Other [employer] Other Start: 12-03-2023 Patient encounter procedure Rakan Nuñez [facility] Start: 11-25-2023 End: 11-25-[address] Jocelin Wells Work Phone: [facility] Work Phone: Start: 11-10-2023 End: 11-10-2023 ambulatory Rakan Nuñez Other [employer] Other Start: 11-10-2023 Telephone encounter Rakan Nuñez [facility] Start: 10-01-2023 End: 10-01-2023 ambulatory Rakan Nuñez Other [employer] Other Start: 10-01-2023 Telephone encounter Rakan Nuñez [facility] Start: 09-26-2023 End: 09-26-2023 ambulatory Rakan Nuñez Other [employer] Other Start: 09-26-2023 Telephone encounter Rakan Nuñez [facility] Start: 08-20-2023 End: 08-20-2023 ambulatory Rakan Ball Other [employer] Other Start: 08-20-2023 Telephone encounter Raakn Nuñez [facility] Start: 07-11-2023 End: 07-11-2023 ambulatory Rakan Nuñez Other [employer] Other Start: 07-11-2023 Telephone encounter Rakan Nuñez [facility] Start: 05-28-2023 End: 05-28-2023 ambulatory Rakan Nuñez Other [employer] Other Start: 05-28-2023 Telephone encounter Rakan CR[facility]E [facility] Start: 05-14-2023 End: 05-14-[address] LATIA NUÑEZ [facility] Work Phone: Start: 05-14-2023 End: 05-14-[address] NUÑEZ [facility] Start: 02-07-2023 End: 02-07-2023 ambulatory Rakan Nuñez Other [employer] Other Start: 02-07-2023 Office outpatient vi sit 15 minutes Rakan [facility] Start: 02-04-2023 End: 02-04-2023 ambulatory Rakan Nuñez Other [employer] Other Start: 02-04-2023 Telephone encounter Rakan [facility]ez [facility] Start: 02-03-2023 End: 02-04-[address] VITAL LISTED REQUEST Facility: Start: 10-08-2017 End: 10-13-2017 Ambulatory ABIEL STARKS [facility] Procedures Date Procedure Procedure Detail Performing Clinician Start: 11-09-2024 X-ray of right ankle Rakan Ball DO Work Phone: Start: 10-12-2024 X-ray of right ankle Rakan Ball DO Work Phone: Start: 09-21-2024 X-ray of right ankle DO Rakan Ball Work Phone: Start: 01-30-[address] Jocelin Wells Work Phone: H/O: surgery Status post abdominoplasty Francisco Wells Work Phone: Plan of Treatment Date Care Activity Detail Author Start: 10-12-2024 X-ray of right ankle XR ankle RT min 3V* [facility] Start: 10-12-2024 XR Ankle - right GE 3 Views [facility] Start: 09-21-2024 X-ray of right ankle XR ankle RT min 3V* [facility] Start: 09-21-2024 XR Ankle - right GE 3 Views [facility] Start: 01-30-2024 Anes lower ant abdom inal wall panniculectomy ANESTH FAT LAYER REMOVAL [facility] Start: 01-30-2024 Excision skin abd infraumbilical panniculectomy EXC SKIN ABD [facility] Start: 01-30-2024 Incentive spirometry [facility] Start: 01-30-2024 [facility] Start: 01-30-[address] [facility] [place] Ankle - right GE 3 Views [facility] Immunizations Immunization Date Immunization Notes Care Provider Fa cility 10-29-2021 COVID-19 Vaccine Pfi zer - Documentation Purposes Only Rakan Nuñez Other [facility] 02-02-2021 COVID-19 Vaccine Blas ssen - Documentation Purposes Only Rakan Nuñez Other [facility] 03-05-2015 tetanus toxoid, redu svitlana diphtheria toxoid, and acellular pertussis vaccine, adsorbed Rakan Nuñez Other [facility] Payers Date Payer Category Payer Unknown [id number] 2023 Self-pay 2023 Unknown [id number] 1961 Self-pay [id number] Medicare [id number] Unknown [id number] 01.09.84 [id number] Unknown [id number] [id number]. [id number] [facility] P[employer]AGE [employer] 0 [id number] Unknown [id number] 2.16.8 [id number] Unknown [id number] 2.16.8 [id number] Unknown [id number] 2.16.8 [id number] Unknown [id number] 2.16.8 [id number] Unknown [id number] 2.16.8 [id number] Unknown [id number] 2.16.8 [id number] Unknown [id number] 2.16.8 [id number] Unknown [id number] 2.16.8 [id number] Unknown [id number] 2.16.8 [id number] Unknown [id number] 2.16.8 [id number] Unknown [id number] 2.16.8 [id number] Unknown [id number] 2.16.8 [id number] Unknown [id number] 2.16.8 [id number] Unknown [id number] 2.16.8 [id number] Social History Date Type Detail Facility Sex Assigned At [employer] Other Start: 05-14-2023 End: 01-14-2024 Tobacco smoking status NHIS Unknown if ever smoked [facility] Start: 1960 Sex Assigned At Female [facility] Start: 01-06-2024 End: 01-06-2024 Tobacco smoking status NHIS Never smoked tobacco (finding) [facility] Start: 10-12-2024 End: 01-13-2025 Sex Female (finding) [facility] NEGATED: Highlighted row [facility] Goals Date Patient Goal Desired Activity /State Mental Status Date Assessment Result Facility 01-30-2024 Cognitive function Voice/Name [facility] Work Phone: Clinical Notes 02-07-2023 to 11-09-2024 Note Date & Type Note Facility 11-09-2024 Evaluation note Diagnosis Onset Date Resolution Fracture of right ankle, lateral malleolus acute November 09, 024 11:40am Elevated BP without diagnosis of hypertension acute January 13, 025 11:13am GERD (gastroesophageal reflux disease) acute January 13 025 11:13am Hypothyroid acute December 11:13am Major depression acute January 13, 2025 11:13am Mammogram declined acute 2024 11:13am Obesity acute January 13, 2025 11:13am Medicare annual wellness visit, initial noneactive January 13, 2025 11:13am [facility] Work Phone: 1(803) 995-698710-10-2024 Evaluation note* Diagnosis Onset Date Resolution Status Admit Date Fracture of right ankle, lateral malleolus acute September 02, 2024 6:25pm Fracture of right ankle, lateral malleolus acute September 07, 2024 9:42am Fracture of right ankle, lateral malleolus acute September 21, 2024 1:34pm Fracture of right ankle, lateral malleolus acute October 12, 2024 12:53pm [facility] Work Phone: 1(590) 437-485303-08-2024 Discharge summary Author Jocelin Wells [facility] January 30, 2024 12:32pm Note Date/Time January 30, 2024 12:3 1pm [facility] Medical Records Department [address] [place] [address] Instructions for Home/Discharge Instructions 01/30/24 1229 MR#: [id number] Acct: [id number] Name: BRENDA DAVIS Rep # :[id number] : 1960 63 From: Jocelin Wells MD PCP: RAKAN NUÑEZ Status:REG SDC Discharge Instructions Dressing / Incision Additional Dressing/Incision Instructions:: Follow instructions given in the office. Follow Up Care Please Follow Up With: Jocelin Wells MD When: In 1 week Test Results: Test results from this visit will be discussed in further detail at your follow- up appointment, if applicable. Discharge Plan Admission Attending Provider: Jocelin Wells Primary Care Provider: RAKAN NUÑEZ Discharge Orders/Prescriptions Prescriptions: No Action aspirin [Adult Aspirin Regimen] 81 mg tablet,delayed release (DR/EC) 81 mg PO DAILY Patient Comments: LAST DOSE TO BE 01/23/24 FOR SURGERY ON 01/30/24 levothyroxine 25 mcg tablet 25 mcg PO DAILY omeprazole magnesium [Prilosec OTC] 20 mg tablet,delayed release (DR/EC) 20 mg PO DAILY cephalexin 500 mg capsule 500 mg PO BID Qty: 14 0RF jxizmwoyndsw-Nf-oqwe-minerals Tablet 1 tab PO DAILY Disposition Disposition (needs filled in before D/C Order can be placed): Home, Self Care 01/30/24 1232<Electronically signed by Jocelin Wells MD>Jocelin Wells MD CC: RAKAN NUÑEZ ~ Signed [facility] Work Phone: 1([phone]) 649-380103-08-2024 Procedure [facility] 01-30-2024 History and physical note Author Jocelin Wells [facility] January 30, 2024 7:38am Note Date/Time January 30, 2024 7:35 am [facility] Medical Records Department [address] [place] [address] History & Physical Exam 01/30/24 0733 MR#: [id number] Acct: [id number] Name: BRENDA DAVIS Rep # :[id number] : 1960 63 From: Jocelin Wells MD PCP: RAKAN NUÑEZ Status:[facility] Location: [place] [address] History and Physical Date of Admission: 01/30/24 The patient is examined. There are no changes to the H&P dated 01/02/24. She has atrophic skin of the abdomen and presents for abdominoplasty. Informed consent obtained. Assessment & Plan Assessment/Plan (1) Encounter for cosmetic procedure: (2) Localized adiposity: (3) Atrophic skin: PLAN: Plan Pt for abdominoplasty. 01/30/24 0738 <Electronically signed by Jocelin Wells MD> Cosigner Signature (if applicable): CC: RAKAN NUÑEZ; Dr. Jocelin Wells MD~ Signed [facility] Work Phone: 1(358) 783-705303-08-2024 [facility] Medical Records Department [address] [place] [address] History Physical Exam 01/30/24 0733 MR#: [id number] Acct: [id number] Name: BRENDA DAVIS Rep #: [id number] : 1960 63 From: Jocelin Wells MD PCP: RAKAN NUÑEZ Status:REG [facility] Location: [place] [address] History and Physical Date of Admission: 01/30/24 The patient is examined. There are no changes to the H P dated 01/02/24. She has atrophic skin of the abdomen and presents for abdominoplasty. Informed consent obtained. Assessment Plan Assessment/Plan (1) Encounter for cosmetic procedure: (2) Localized adiposity: (3) Atrophic skin: PLAN: Plan Pt for abdominoplasty. 01/30/24 0738 Cosigner Signature (if applicable): CC: RAKAN NUÑEZ; Dr. Jocelin Wells MD [facility] Evaluation note* Encounter Date Diagnosis Assessment Notes Treatment Notes Treatment Clinical Notes Dec, Preop exam for internal medicine (ICD-10 - Z01.818) I have seen and examined Mrs. Davis for her preoperative evaluation. I have instructed her to avoid ASA, NSAIDS and fish oil for 7 days prior to surgery. 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 Dec, Multinodular goiter (ICD-10 - E04.2) Stable, no suspicious nodules per thyroid US. [employer] Other 02-01-2024 Evaluation note* Encounter Date Diagnosis Assessment Notes Treatment Notes Treatment Clinical Notes Dec, Overweight (ICD-10 - E66.3) [employer] Other 01-10-2024 Evaluation note* Encounter Date Diagnosis Assessment Notes Treatment Notes Treatment Clinical Notes Nov, Medicare annual wellness visit, initial (ICD-10 - Z00.00) Personalized health advice was given to the beneficiary including a written plan for screenings discussed and provided. Advanced care planning reviewed and/or information given as requested. Additional counseling was provided here today in regards to, [ ]. The above visit was performed by [ ], under direct supervision of [ ]. Document reviewed and amended by provider signed below. Nov, IDANIA (generalized anxiety disorder) (ICD-10 - F41.1) Healthy diet and exercise Continue SNRI treatment Avoid abrupt w/d from medication Nov, Other specified hypothyroidism (ICD-10 - E03.8) Nov, Autoimmune thyroiditis (ICD-10 - E06.3) Yearly TSH, clinically euthyroid Nov, Multinodular goiter (ICD-10 - E04.2) No change in size, nontender Nov, Overweight (ICD-10 - E66.3) This patient has been instructed on a low-fat, high-fiber diet. They are instructed to reduce calories, portion sizes and snacks. It is recommended that they exercise for 30 minutes, 3-5 times weekly. Planning on abdominoplasty in January Encouraged to lose more weight Nov, Screening mammography declined (ICD-10 - Z53.20) Nov, Screening for colon cancer (ICD-10 - Z12.11) [employer] Other 12-18-2023 Evaluation note* Encounter Date Diagnosis Assessment Notes Treatment Notes Treatment Clinical Notes Oct, Other obesity due to excess calories (ICD-10 - E66.09) [employer] Other 11-08-2023 Evaluation note* Encounter Date Diagnosis Assessment Notes Treatment Notes Treatment Clinical Notes Sep, Other obesity due to excess calories (ICD-10 - E66.09) [employer] Other 11-03-2023 Evaluation note* Encounter Date Diagnosis Assessment Notes Treatment Notes Treatment Clinical Notes Sep, Other obesity due to excess calories (ICD-10 - E66.09) [employer] Other 09-27-2023 Evaluation note* Encounter Date Diagnosis Assessment Notes Treatment Notes Treatment Clinical Notes Jul, Other obesity due to excess calories (ICD-10 - E66.09) [employer] Other 08-18-2023 Evaluation note* Encounter Date Diagnosis Assessment Notes Treatment Notes Treatment Clinical Notes Jun, Other obesity due to excess calories (ICD-10 - E66.09) [employer] Other 07-05-2023 Evaluation note* Encounter Date Diagnosis Assessment Notes Treatment Notes Treatment Clinical Notes May, Other obesity due to excess calories (ICD-10 - E66.09) [employer] Other 03-17-2023 Evaluation note* Encounter Date Diagnosis Assessment Notes Treatment Notes Treatment Clinical Notes Jan, 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 They are instructed to reduce calories, portion sizes and snacks. It is recommended that they exercise for 30 minutes, 3-5 times weekly. Discussed affordable medical treatment: [employer] Discussed exercise and restricting calories Jan, IDANIA (generalized anxiety disorder) (ICD-10 - F41.1) Healthy diet and exercise [employer] Other Evaluation noteNo [employer] Other Evaluation note* Diagnosis Onset Date Resolution Status Atrophic skin acute Localized adiposity acute [facility] Work Phone: Evaluation note* Diagnosis Onset Date Resolution Status Atrophic skin acute Localized adiposity acute Atrophic skin acute Localized adiposity acute Atrophic skin acute Localized adiposity acute [facility] Work Phone: Evaluation note* Diagnosis Onset Date Resolution Status Atrophic skin acute Localized adiposity acute Atrophic skin acute Localized adiposity acute Atrophic skin acute Encounter for cosmetic procedure acute Localized adiposity acute Atrophic skin acute Encounter for cosmetic procedure acute Localized adiposity acute [facility] Work Phone: Evaluation note* Diagnosis Onset Date Resolution Status Atrophic skin acute Localized adiposity acute Atrophic skin acute Localized adiposity acute Atrophic skin acute Encounter for cosmetic procedure acute Localized adiposity acute Atrophic skin acute Encounter for cosmetic procedure acute Localized adiposity acute Status post abdominoplasty a [facility] Work Phone: Evaluation note* Diagnosis Onset Date Resolution Status Atrophic skin acute Localized adiposity acute Atrophic skin acute Localized adiposity acute Atrophic skin acute Encounter for cosmetic procedure acute Localized adiposity acute Atrophic skin acute Encounter for cosmetic procedure acute Localized adiposity acute Status post abdominoplasty a cute Status post abdominoplasty a [facility] Work Phone: Evaluation note* Diagnosis Onset Date Resolution Status Atrophic skin acute Localized adiposity acute Atrophic skin acute Localized adiposity acute Atrophic skin acute Encounter for cosmetic procedure acute Localized adiposity acute Atrophic skin acute Encounter for cosmetic procedure acute Localized adiposity acute Status post abdominoplasty a cute Status post abdominoplasty a cute Status post abdominoplasty a [facility] Work Phone: Evaluation note* Diagnosis Onset Date Resolution Status Atrophic skin acute Localized adiposity acute Atrophic skin acute Localized adiposity acute Atrophic skin acute Encounter for cosmetic procedure acute Localized adiposity acute Atrophic skin acute Encounter for cosmetic procedure acute Localized adiposity acute Status post abdominoplasty a cute Status post abdominoplasty a cute Status post abdominoplasty a cute Status post abdominoplasty a [facility] Work Phone: Evaluation note* Diagnosis Onset Date Resolution Status Atrophic skin acute Localized adiposity acute Atrophic skin acute Encounter for cosmetic procedure acute Localized adiposity acute Atrophic skin acute Encounter for cosmetic procedure acute Localized adiposity acute Status post abdominoplasty a cute Status post abdominoplasty a cute Status post abdominoplasty a cute Status post abdominoplasty a cute Status post abdominoplasty a [facility] Work Phone: Evaluation note* Diagnosis Onset Date Resolution Status Fracture of right ankle, lateral malleolus acute [facility] Work Phone: Evaluation note* Diagnosis Onset Date Resolution Status Fracture of right ankle, lateral malleolus acute Fracture of right ankle, lateral malleolus acute Fracture of right ankle, lateral malleolus acute [facility] Work Phone: History general Narrative - Reported* Type Description Date Medical History Hypothyroid Medical History Autoimmune hypothyroidism Surgical History FNA THYROID NODULE 2014 Hospitalization History broken leg as a child [employer] Other Summary Purpose Family History Relationship Condition Age at Onset Recorded Date/T noel Not Specified Diabetes mellitus Unknown Arthritis Unknown Cardiac disease Unknown Hypertension Unknown Disorder of thyroid Unknown Relationship Condition Age at Onset Recorded Date/T noel father Hypertension Unknown Unknown Diabetes mellitus Unknown mother Unknown Heart disease Unknown Advance Directives Advance Directive Response Recorded Date/ Time Living Will No January 09 4:11pm Power of Java Xml Developer Yes January 09, 2024 4:11pm Advance Directive Response Recorded Date/ Time Name of Medical Power of Java Xml Developer JAZ HWANG JINA ADAMS January 09, 2024 4:11pm Living Will No January 09 4:11pm Power of Java Xml Developer Yes January 09, 2024 4:11pm Advance Directive Response Recorded Date/ Time Name of Medical Power of Java Xml Developer JAZ HWANG JINA ADAMS January 09, 2024 5:11pm Living Will No January 09 5:11pm Power of Java Xml Developer Yes January 09, 2024 5:11pm Advance Directive Response Recorded Date/ Time Advance Directives No March 15 12:43pm Advance Directive Response Recorded Date/ Time Advance Directives No March 15 11:43am Chief Complaint and Reason for Visit Chief Complaint CONSULT-TUMMY HILARYCK Reason for Visit Atrophic skin Localized adiposity Chief Complaint Follow up on abdomin oplasty surgery pre op#1 abdominoplasty preop #2 abdominoplasty Reason for Visit Atrophic skin Localized adiposity Atrophic skin Localized adiposity Atrophic skin Localized adiposity Chief Complaint Follow up on abdomin oplasty surgery pre op#1 abdominoplasty preop #2 abdominoplasty Abdominoplasty Abdominoplasty Reason for Visit Atrophic skin Localized adiposity Atrophic skin Localized adiposity Atrophic skin Encounter for cosmetic procedure Localized adiposity Atrophic skin Encounter for cosmetic procedure Localized adiposity Chief Complaint Follow up on abdomin oplasty surgery pre op#1 abdominoplasty preop #2 abdominoplasty Abdominoplasty Abdominoplasty post op #1 abdominoplasty Reason for Visit Atrophic skin Localized adiposity Atrophic skin Localized adiposity Atrophic skin Encounter for cosmetic procedure Localized adiposity Atrophic skin Encounter for cosmetic procedure Localized adiposity Status post abdominoplasty Chief Complaint Follow up on abdomin oplasty surgery pre op#1 abdominoplasty preop #2 abdominoplasty Abdominoplasty Abdominoplasty post op #1 abdominoplasty post op #2 abdominoplasty Reason for Visit Atrophic skin Localized adiposity Atrophic skin Localized adiposity Atrophic skin Encounter for cosmetic procedure Localized adiposity Atrophic skin Encounter for cosmetic procedure Localized adiposity Status post abdominoplasty Chief Complaint Follow up on abdomin oplasty surgery pre op#1 abdominoplasty preop #2 abdominoplasty Abdominoplasty Abdominoplasty post op #1 abdominoplasty post op #2 abdominoplasty Follow up Reason for Visit Atrophic skin Localized adiposity Atrophic skin Localized adiposity Atrophic skin Encounter for cosmetic procedure Localized adiposity Atrophic skin Encounter for cosmetic procedure Localized adiposity Status post abdominoplasty Status post abdominoplasty Chief Complaint Follow up on abdomin oplasty surgery pre op#1 abdominoplasty preop #2 abdominoplasty Abdominoplasty Abdominoplasty post op #1 abdominoplasty post op #2 abdominoplasty Follow up POST OP Reason for Visit Atrophic skin Localized adiposity Atrophic skin Localized adiposity Atrophic skin Encounter for cosmetic procedure Localized adiposity Atrophic skin Encounter for cosmetic procedure Localized adiposity Status post abdominoplasty Status post abdominoplasty Status post abdominoplasty Chief Complaint Follow up on abdomin oplasty surgery pre op#1 abdominoplasty preop #2 abdominoplasty Abdominoplasty Abdominoplasty post op #1 abdominoplasty post op #2 abdominoplasty Follow up POST OP FOLLOW UP Reason for Visit Atrophic skin Localized adiposity Atrophic skin Localized adiposity Atrophic skin Encounter for cosmetic procedure Localized adiposity Atrophic skin Encounter for cosmetic procedure Localized adiposity Status post abdominoplasty Status post abdominoplasty Status post abdominoplasty Status post abdominoplasty Chief Complaint pre op#1 abdominopla sty preop #2 abdominoplasty Abdominoplasty Abdominoplasty post op #1 abdominoplasty post op #2 abdominoplasty Follow up POST OP FOLLOW UP FOLLOW UP Reason for Visit Atrophic skin Localized adiposity Atrophic skin Encounter for cosmetic procedure Localized adiposity Atrophic skin Encounter for cosmetic procedure Localized adiposity Status post abdominoplasty Status post abdominoplasty Status post abdominoplasty Status post abdominoplasty Status post abdominoplasty Chief Complaint Amb Documentation Right ankle pain Reason for Visit Fracture of right an kle, lateral malleolus Chief Complaint Amb Documentation Right ankle pain [facility] JONATHAN RT ANKLE FX WX Reason for Visit Fracture of right an kle, lateral malleolus Chief Complaint Right ankle pain UC JONATHAN RT ANKLE FX WX 10-14 DAYS S82.61XA - Displaced fracture of lateral malleolus Reason for Visit Fracture of right an kle, lateral malleolus Fracture of right ankle, lateral malleolus Fracture of right ankle, lateral malleolus Chief Complaint Admit Date Right ankle pain September 02, 2024 6 :25pm UC JONATHAN RT ANKLE FX WX September 07 9:42am 10-14 DAYS September 21, 2024 1 :34pm S82.61XA - Displaced fracture of lateral malleolus September 21, 2024 1:37pm JLK PT RT ANKLE FX 3 WK RECHECK October 12, 2024 12:53pm S82.61XD - Displaced fracture of lateral malleolus October 12, 2024 12:57pm Reason for Visit Admit Date Fracture of right ankle, lateral malleol us September 02, 2024 6:25pm Fracture of right ankle, lateral malleol September 07, 2024 9:42am Fracture of right ankle, lateral malleol us September 21, 2024 1:34pm Fracture of right ankle, lateral malleol October 12, 2024 12:53pm Chief Complaint Admit Date S82.61XD - Displaced fracture of lateral malleolus November 09, 2024 10:55am 4 WEEKS November 09, 2024 11:40am wellness January 13, 2025 11:13am Reason for Visit Admit Date Fracture of right ankle, lateral malleol us November 09, 2024 11:40am Elevated BP without diagnosis of hyperte nsion January 13, 2025 11:13am GERD (gastroesophageal reflux disease) F ebruary 2024 11:13am Hypothyroid January 13, 2025 11:13am Major depression January 13, 2025 11:13am Mammogram declined January 13, 2025 11:13am Obesity January 13, 2025 11:13am Medicare annual wellness visit, initial January 13, 2025 11:13am Additional Source Comments INFORMATION SOURCE (unrecogn ized section and content) DATE CREATED AUTHOR 05/19/2018 [facility] DATE CREATED AUTHOR AUTHOR'S ORGANIZ ATION 02/04/2023 [facility] DATE CREATED AUTHOR AUTHOR'S ORGANIZ ATION 11/12/2024 [facility] DATE CREATED AUTHOR AUTHOR[facility]S [facility] AT[facility] REASON FOR VISIT (unrecogniz ed section and content) Lab ResultsWellnessREFILLwei ght checkRefillBP and WeightAdipexweight and BP checkWellnesscologuard resultsWeight/BPPre-Op Clearance Care Teams (unrecognized sec tion and content) Team Status: Active Member Role Status Dates Rakan Nuñez DO Primary Care Provider Active Team Status: Inactive Member Role Status Dates Rakan Nuñez DO Primary Care Provider Active Start: September 02, 2024 End: September 02, 2024 Indira Renee APRN Attending Provider Active Start: September 02, 2024 End: September 02, 2024 Team Status: Inactive Member Role Status Dates Rakan Nuñez DO Primary Care Provider Active Start: September 07, 2024 End: September 07, 2024 Homero Aguilera MD Active Start: Aug End: September 07, 2024 RAJESH Banda Attending Provider Active Start: September 07, 2024 End: September 07, 2024 Team Status: Inactive Member Role Status Dates Rakan Nuñez DO Primary Care Provider Active Start: September 21, 2024 End: September 21, 2024 RAJESH Banda Attending Provider Active Start: September 21, 2024 End: September 21, 2024 Team Status: Active Member Role Status Dates Rakan Nuñez DO Primary Care Provider Active Start: September 21, 2024 RAJESH Banda Attending Provider Active Start: September 21, 2024 Team Status: Inactive Member Role Status Dates Dr. Jocelin Wells MD Attending Provider Active Team Status: Inactive Member Role Status Dates Dr. Jocelin Wells MD Attending Provider Active JOAQUIN BLEDSOE Primary Care Provider, Referring Provid er Active Team Status: Active Member Role Status Dates Dr. Jocelin Wells MD Attending Provid er, Referring Provider, Other Provider Active JOAQUIN BLEDSOE Primary Care Provider Active Team Status: Inactive Member Role Status Dates Dr. Jocelin Wells MD Attending Provider, Referring Provider Active JOAQUIN BLEDSOE Primary Care Provider Active Team Status: Active Member Role Status Dates RAKAN NUÑEZ Primary Care Provider Active Team Status: Active Member Role Status Dates DR LATIA NUÑEZ Primary Care Provider Active Team Status: Inactive Member Role Status Dates Dr. Jocelin Wells MD Attending Provider Active DR LATIA NUÑEZ Primary Care Provider, Referring Provider Active Team Status: Active Member Role Status Dates Rakan Nuñez DO Primary Care Provider Active Start: June 11, 2024 LORRIE Mitchell Attending Provider Active St art: June 11, 2024 Team Status: Inactive Member Role Status Dates Rakan Nuñez DO Primary Care Provider Active Start: September 07, 2024 End: September 07, 2024 Homero Aguilera MD Attending Provider Active Star t: September 07, 2024 End: September 07, 2024 Team Status: Inactive Member Role Status Dates Rakan Nuñez DO Primary Care Provider Active Start: October 12, 2024 End: October 12, 2024 Khalif Renee DO Attending Provider Active St art: October 12, 2024 End: October 12, 2024 Team Status: Active Member Role Status Dates Rakan Nuñez DO Primary Care Provider Active Start: October 12, 2024 Khalif Renee DO Attending Provider Active St art: October 12, 2024 Team Status: Inactive Member Role Status Dates Rakan Nuñez DO Primary Care Provider Active Start: November 09, 2024 End: November 09, 2024 Khalif Renee DO Attending Provider Active St art: November 09, 2024 End: November 09, 2024 Team Status: Inactive Member Role Status Dates Rakan Nuñez DO Primary Care Provide r, Attending Provider Active Start: January 13, 2025 End: January 13, 2025 Goals (unrecognized section and content) Goals may be documented in a n alternate section FOR RECORDS PERTAINING TO PATIENTS WHO ARE OR HAVE BEEN ENROLLED IN A CHEMICAL DEPENDENCY/SUBSTANCEABUSE PROGRAM, SOME INFORMATION MAY BE OMITTED. This clinical summary was aggregated from multiple sources. Caution should be exercised in using it in the provision of clinical care. This summary normalizes information from multiple sources, and as a consequence, information in this document may materially change the coding, format and clinical context of patient data. In addition, data may be omitted in some cases. CLINICAL DECISIONS SHOULD BE BASED ON THE PRIMARY CLINICAL RECORDS. [employer] [facility]. provides no warranty or guarantee of the accuracy or completeness of information in this document.
--- OUTSIDE RECORDS SUMMARY | 2025-01-18 12:18 | XMS_ITS | CCD ---
Author Organization [facility] CliniSywy Care Team Providers Care Health Technician Name Role Phone ABIEL STARKS Unavailable Unavailable [...] Provider DO Rakan Nuñez Primary Care Provider RAJESH Mallory Attending Provider Rakan Nuñez DO Primary Care Provider [place] [employer] PROFESSOR-CYuki Attending Provider Khalif Renee DO Attending Provider [phone] Rakan Nuñez Primary Care Unavailable Indria Renee Admitting Unavailable Indira Renee Attending Unavailable [...] Unavailable Rakan Nuñez DO Primary Care Provider [phone] Khalif Renee DO Attending Provider Medications Current [...] BY MOUTH EVERY DAY for 90 Active Wxbcyobqcqdf-On-Etkw-Mineral s (8 sources) Start: 01-09-2024 take 1 tablet by mouth once daily Ricrforfpxsr-Av-Gwyc-Minerals Active 1 TABLET PO DAILY January 09, 2024 1:00am Start: 01-09-2024 take 1 tablet by rosaura th once daily Xsrzxbehnjlv-Bj-Payt-Minerals Active 1 T ABLET PO DAILY January [...] Start: 11-11-2023 take 1 capsule by mo [facility] every twenty-four hours Adipex-P 37.5 MG 1 capsule Orally Once a day for 30 days Oct, Active Start: 10-01-2023 take 1 capsule by mo ut every twenty-four hours Adipex-P 37.5 MG 1 capsule Orally Once a day for 30 days Sep, Active Start: 08-20-2023 take 1 capsule by mo [facility] every twenty-four hours Adipex-P 37.5 MG 1 capsule Orally Once a day for 30 days Jul, Active Start: 07-11-2023 take 1 capsule by [facility] every twenty-four hours Adipex-P 37.5 MG 1 capsule Orally Once a day for 30 days Jun, Active Start: 06-02-2023 take 1 capsule by [facility] every twenty-four hours Adipex-P 37.5 MG [...] 12:23pm take 1 capsule by [facility] once daily Venlafaxine HCl ER 150 mg [...] 3V*on 2023 XR ankle RT min 3V* [facility] [address] [place] [address] XRay Report Signed Patient: Serena Davis MR #: [id number] : 1960 Acct:[id number] Age/Sex: 63 / F ADM Date: 11/09/24 Loc: [facility] Room: Type: [facility] Attending Dr: Khalif Renee DO Copies to: [...] Sandhya Downing M.D.11/09/2024 3:17 PM Dictation Location: [place] [address] Transcribed By: [facility] 11/09/241516 Dictated By: Sandhya Downing MD 11/09/241514 Signed By: 11/09/241516 Normal [facility] X-ray reportOrdered By: Jazzy Downing on 10-12-2024 Study report [facility] [address] [place] [address] XRay Report Signed Patient: Serena Davis MR#: [id number] : 1960 Acct:[id number] Age/Sex: 63 / F ADM Date: 4 Loc: [facility] Room: Type: [facility] Attending Dr: Khalif Renee DO Copies to: [...] Sandhya Downing MD 10/12/241543 Signed By: 10/12/241544 [facility] Work Phone: XR ankle RT min 3V*on 2023 XR ankle RT min 3V* [facility] [place] [address] XRay Report Signed Patient: Serena Davis MR #: [id number] : 1960 Acct:[id number] Age/Sex: 63 / F ADM Date: 10/12/24 Loc: [facility] Room: Type: [facility] Attending Dr: Khalif Renee DO Copies to: [...] 154 Signed By: 10/12/24 154 Normal [facility] XR ankle RT min 3V*on 2023 XR ankle RT min 3V* [facility] [address] [place] [address] XRay Report Signed Patient: Serena Davis MR #: [id number] : 1960 Acct:[id number] Age/Sex: 63 / F ADM Date: 09/21/24 Loc: [facility] Room: Type: [facility] Attending Dr: Yuki Mallory NP-C Copies [...] Yaya Tineo M.D.09/21/2024 5:28 PM Dictation Location: [place] [address] Transcribed By: [facility] 09/21/24 172 Dictated By: Yaya Tineo DO 09/21/241725 Signed By: 09/21/248 Normal [facility] XR ankle RT min 3V*on 2023 XR ankle RT min 3V* [facility] [place] [place] [address] XRay Report Signed Patient: Serena Davis MR #: [id number] : 1960 Acct:[id number] Age/Sex: 63 / F ADM Date: 09/02/24 Loc: [facility] Room: Type: [facility] CLI Attending Dr: Indira Renee APRN Copies [...] Harpal Laws M.D.09/02/2024 6:50 PM Dictation Location: [place] [address] Transcribed By: [facility] 09/02/241849 Dictated By: Harpal Laws II, MD 09/02/241848 Signed By: 09/02/241849 Normal [facility] Plastic Surgery Visit Report on 04-28-2024 Plastic Surgery Visit Report [facility] Plastic Reconstructive Surgery [address] [place] [address] OFFICE VISIT Date of Service: 04/28/24 MR#: [id number] Acct: [id number] Name: SERENA DAVIS Rep #: [id number] : 1960 Provider: Dr. Jocelin chun MD Age/Sex: 63/F Location: [facility] Status: Signed Intake Vital Signs 03/31/24 [...] Post Op Diagnoses Status post abdominoplasty Z98.890 [facility] Medical History (Updated 01/14/24 @ 11:41 by [...] Cosigner Signature: Date (if applicable) CC: Normal [facility] Plastic Surgery Visit Report on 03-31-2024 Plastic Surgery Visit Report [facility] Plastic Reconstructive Surgery [address], [address] [place] [address] OFFICE VISIT Date of Service: 03/31/24 MR#: [id number] Acct: [id number] Name: SERENA DAVIS Rep #: [id number] : 1960 Provider: Dr. Jocelin chun MD Age/Sex: 63/F Location: [facility] Status: Signed Intake Vital Signs 03/17/24 10:33 [...] PO DAILY GERD 11/25/23 [History Confirmed 03/31/24] rttexcxlwzwh-Zm-nbsr-m inerals 1 tab PO DAILY SUPPLEMENT 01/09/24 [...] Post Op Diagnoses Status post abdominoplasty Z98.890 [facility] Medical History (Updated 01/14/24 @ 11:41 by [...] recheck 03/31/24 1607 Date Jocelin Wells MD [facility] Signature: Date (if applicable) CC: Normal [facility] Plastic Surgery Visit Report on 03-17-2024 Plastic Surgery Visit Report [facility] Plastic Reconstructive Surgery [address], [address] [place] [address] OFFICE VISIT Date of Service: 03/17/24 MR#: [id number] Acct: [id number] Name: SERENA DAVIS Rep #: [id number] : 1960 Provider: Dr. Jocelin chun MD Age/Sex: 63/F Location: [facility] Status: Signed Intake Vital Signs 03/03/24 10:05 [...] PO DAILY GERD 11/25/23 [History Confirmed 03/17/24] mpzipmgjqcfs-Hf-oobk-m inerals 1 tab PO DAILY SUPPLEMENT 01/09/24 [...] Post Op Diagnoses Status post abdominoplasty Z98.890 [facility] Medical History (Updated 01/14/24 @ 11:41 by [...] Cosigner Signature: Date (if applicable) CC: Normal [facility] Plastic Surgery Visit Report on 03-03-2024 Plastic Surgery Visit Report [facility] Plastic Reconstructive Surgery [address], [address] [place] [address] OFFICE VISIT Date of Service: 03/03/24 MR#: [id number] Acct: [id number] Name: SERENA DAVIS Rep #: [id number] : 1960 Provider: Dr. Jocelin chun MD Age/Sex: 63/F Location: [facility] Status: Signed Intake Vital Signs 02/25/24 09:51 [...] PO DAILY GERD 11/25/23 [History Confirmed 03/03/24] tfkfhsyofmxj-Mh-ctkq-m inerals 1 tab PO DAILY SUPPLEMENT 01/09/24 [...] Post Op Diagnoses Status post abdominoplasty Z98.890 [facility] Medical History (Updated 01/14/24 @ 11:41 by [...] Cosigner Signature: Date (if applicable) CC: Normal [facility] Plastic Surgery Visit Report on 02-25-2024 Plastic Surgery Visit Report [facility] Plastic Reconstructive Surgery [address], [address] [place] [address] OFFICE VISIT Date of Service: 02/25/24 MR#: [id number] Acct: [id number] Name: SERENA DAVIS Rep #: [id number] : 1960 Provider: Dr. Jocelin chun MD Age/Sex: 63/F Location: [facility] Status: Signed Intake Vital Signs 02/11/24 [...] PO DAILY GERD 11/25/23 [History Confirmed 02/25/24] ctbwycwummos-Xe-anbf-m inerals 1 tab PO DAILY SUPPLEMENT 01/09/24 [...] Post Op Diagnoses Status post abdominoplasty Z98.890 [facility] Medical History (Updated 01/14/24 @ 11:41 by [...] Cosigner Signature: Date (if applicable) CC: Normal [facility] Plastic Surgery Visit Report on 02-11-2024 Plastic Surgery Visit Report [facility] Plastic Reconstructive Surgery [address], [address] [place] [address] OFFICE VISIT Date of Service: 02/11/24 MR#: [id number] Acct: [id number] Name: SERENA DAVIS Rep #: [id number] : 1960 Provider: Dr. Jocelin chun MD Age/Sex: 63/F Location: [facility] Status: Signed Intake Vital Signs 11/25/23 [...] PO DAILY GERD 11/25/23 [History Confirmed 02/11/24] ntdopwfwyuhs-Xu-xvrl-m inerals 1 tab PO DAILY SUPPLEMENT 01/09/24 [...] Post Op Diagnoses Status post abdominoplasty Z98.890 [facility] Medical History (Updated 01/14/24 @ 11:41 by [...] Feliz Signature: Date (if applicable) CC: Normal [facility] Plastic Surgery Visit Report on 02-04-2024 Plastic Surgery Visit Report [facility] Plastic Reconstructive Surgery [address] [place] [address] OFFICE VISIT Date of Service: 02/04/24 MR#: [id number] Acct: [id number] Name: SERENA DAVIS Rep #: [id number] : 1960 Provider: Dr. Jocelin chun MD Age/Sex: 63/F Location: [facility] Status: Signed Intake Vital Signs 11/25/23 [...] PO DAILY GERD 11/25/23 [History Confirmed 02/04/24] ftlgjyrstkoy-Nv-byki-m inerals 1 tab PO DAILY SUPPLEMENT 01/09/24 [...] Post Op Diagnoses Status post abdominoplasty Z98.890 [facility] Medical History (Updated 01/14/24 @ 11:41 by [...] Cosigner Signature: Date (if applicable) CC: Normal [facility] Discharge Instructionon Discharge Instruction [facility] Medical Records Department [address] [place] [address] Instructions for Home/Discharge Instructions 01/30/24 1229 MR#: [id number] Acct: [id number] Name: SERENA DAVIS Rep #: [id number] : 1960 63 From: Jocelin Wells MD PCP: RAKAN NUÑEZ Status:[facility] Discharge Instructions Dressing / Incision Additional Dressing/Incision Instructions:: Follow instructions given in the office. Follow Up Care Please Follow Up With: Jocelin Wells MD When: In 1 week Test Results: Test results from this visit will be discussed in further detail at your follow-up appointment, if applicable. Discharge Plan Admission Attending Provider: Jocelin Wlels Primary Care Provider: RAKAN NUÑEZ Discharge Orders/Prescriptions [...] 500 mg PO BID Qty: 14 0RF yvregipvplfv-Gl-yyet-m inerals Tablet 1 tab PO DAILY Disposition Disposition (needs filled in before D/C Order can be placed): Home, Self Care 01/30/24 1232 Jocelin Wells MD CC: RAKAN NUÑEZ Signed Normal [facility] Operative Reporton 4 Operative Report [facility] Medical Records Department [address] [place] [address] Operative Report 01/30/24 1233 MR#: [id number] Acct: [id number] Name: SERENA DAVIS Rep #: [id number] : 1960 63 From: Jocelin Wells MD PCP: RAKAN NUÑEZ Status:REG [facility] Location: [place] [address]- Problems Associated Problem List Diagnoses (1) Encounter for cosmetic procedure: (2) Localized adiposity: (3) Atrophic skin: Report of Operation Date of Procedure: 01/30/24 Pre-Operative Diagnosis: Abdominal skin laxity, localized adiposity, encounter for cosmetic surgery Post-Operative Diagnosis: Same Surgery/Procedure Performed:: Abdominoplasty including muscle plication and translocation of the umbilicus Surgeon: Jocelin Wells veterinary pathologist: EVELYN CLARKEanimal chiropractor Type of Anesthesia: General Specimen's removed: Skin [...] marked and an imbrication is performed using anyzni-xa-kzeeo Nurolon sutures followed by a running nylon [...] NUÑEZ; Dr. Jocelin Wells MD Signed Normal [facility] Activated partial thrombopla stin time (aPTT) in platelet poor plasma by coagulation aOrdered By: Paul Dunbar on 01-14-2024 aPTT Coag (PPP) [Time] 25.4 s 24.1-36.2 [facility] Basophil percentageOrdered B y: Paul Dunbar on 01-14-2024 Bilirubin [Mass/Vol] 0.50 mg/dL 0.20-1.00 [facility] Comment on above: For patients on eltr ombopag therapy, use of Dimension [place] TBIL is not recommended. Protein [Mass/Vol] 7.1 g/dL 6.4-8.2 [facility] Direct bilirubinOrdered By: Paul Dunbar on 01-14-2024 Bilirubin.direct [Mass/Vol] 0.15 mg/dL 0.00-0.30 [facility] Laboratory - Chemistry and C hemistry - challengeOrdered By: Paul Dunbar on 01-14-2024 ALP [Catalytic activity/Vol] 106 U/L - [facility] ALT [Catalytic activity/Vol] 27 U/L [facility] Globulin (S) [Mass/Vol] 3.4 g/dL 2.2-4.2 [facility] Laboratory - CoagulationOrde red By: Paul Dunbar on 01-14-2024 INR Coag (Bld) [Relative time] 0.9 {INR} [facility] PT Coag (PPP) [Time] 12.4 s 11.7-14.9 [facility] Liver Profileon 01-14-2024 Albumin [Mass/Vol] 3.7 g/dL Normal 3.2-5.0 [facility] Comment on above: Performed By: #### L 300.3900, L300.4310, L501.9520, L500.3400 #### [facility] [address] [place], [address] ALK P 106 U/L Normal -117 [facility] Comment on above: Performed By: #### L 300.3900, L300.4310, L501.9520, L500.3400 #### [facility] [address] [place], [address] ALT [Catalytic activity/Vol] 27 U/L Normal - [facility] Comment on above: Performed By: #### L 300.3900, L300.4310, L501.9520, L500.3400 #### [facility] [address] [place], [address] AST [Catalytic activity/Vol] 19 U/L Normal 15-37 [facility] Comment on above: Performed By: #### L 300.3900, L300.4310, L501.9520, L500.3400 #### [facility] [address] [place], [address] Bilirubin [Mass/Vol] 0.50 mg/dL Normal 0.20-1.00 [facility] Comment on above: Result Comment: For patients on eltrombopag therapy, use of Dimension [place] TBIL is not recommended. Performed By: #### L 300.3900, L300.4310, L501.9520, L500.3400 #### [facility] [address] [place], [address] Bilirubin.direct [Mass/Vol] 0.15 mg/dL Normal 0.00-0.30 [facility] Comment on above: Performed By: #### L 300.3900, L300.4310, L501.9520, L500.3400 #### [facility] [address] [place], [address] Globulin (S) [Mass/Vol] 3.4 g/dL Normal 2.2-4.2 [facility] Comment on above: Performed By: #### L 300.3900, L300.4310, L501.9520, L500.3400 #### [facility] [address] [place], [address] T PROT 7.1 g/dL Normal 6.4-8.2 [facility] Comment on above: Performed By: #### L 300.3900, L300.4310, L501.9520, L500.3400 #### [facility] [address] [place], [address] Partial Thromboplast Timeon 01-14-2024 aPTT Coag (Bld) [Time] 25.4 s Normal 24.1-36.2 [facility] Comment on above: Performed By: #### L 300.3900, L300.6490, L501.0831, L5003403 #### [facility] [address] [place], [address] Plastic Surgery Visit Report on 01-14-2024 Plastic Surgery Visit Report [facility] Plastic Reconstructive Surgery [address], [address] [place] [address] OFFICE VISIT Date of Service: 01/14/24 MR#: [id number] Acct: [id number] Name: SERENA DAVIS SCOOBY Rep #: [id number] : 1960 Provider: Dr. Jocelin chun MD Age/Sex: 63/F Location: [facility] Status: Signed Intake Vital Signs 11/25/23 [...] PO DAILY GERD 11/25/23 [History Confirmed 01/09/24] tmtjypmopzfg-Yn-hhpd-m inerals 1 tab PO DAILY SUPPLEMENT 01/09/24 [...] Lindseyer Signature: Date (if applicable) CC: Normal [facility] Prothrombin Time w/INRon INR Coag (PPP) [Relative time] 0.9 {INR} Normal [facility] Comment on above: Performed By: #### L 300.3900, L300.4310, L501.9520, L500.3400 #### [facility] [address] [place], [place], [address] PT Coag (PPP) [Time] 12.4 s Normal 11.7-14.9 [facility] Comment on above: Performed By: #### L 300.3900, L300.4310, L501.9520, L500.3400 #### [facility] [address] [place], [place], [address] Serum or plasma thyroid stim ulating hormone (TSH) measurement (units/volume)Ordered By: Paul Dunbar on 01-14-2024 TSH Qn 0.01 uIU/mL 0.358-3.74 [facility] Thin prep Papanicolaou smear with manual screeningOrdered By: Paul Dunbar on 01-14-2024 Thin prep Papanicolaou smear with manual screening 3.7 g/dL 3.2-5.0 [facility] Thin prep Papanicolaou smear with manual screening 19 U/L 15-37 [facility] Thyroid Stim Hormone (TSH)on 01-14-2024 TSH 0.01 uIU/mL Low 0.358-3.74 [facility] Comment on above: Performed By: #### L 300.3900, L300.4310, L501.9520, L500.3400 #### [facility] [address] [place], [address] CBC AUTO DIFFon 02-03-2023 BASO # 0.0 103/ul Normal 0.0-0.1 [facility] Comment on above: Performed By: #### D ATCBC #### [facility] [address] [place] [address] [address] Pili Mcnamara Basophils/100 WBC (Bld) 0.6 % Normal 0.2-2.0 [facility] Comment on above: Performed By: #### D ATCBC #### [facility] [address] [place] [address] [address] Pili Mcnamara EO # 0.2 103/ul Normal 0.0-0.7 [facility] Comment on above: Performed By: #### D ATCBC #### [facility] [address] [place] [address] [address] Pili Mcnamara Eosinophils/100 WBC (Bld) 2.8 % Normal 0.9-7.0 [facility] Comment on above: Performed By: #### D ATCBC #### [facility] [address] [place] [address] [address] Pili Mcnamara Erythrocyte distribution width (RBC) [Ratio] 12.4 % Normal 11.0-15.0 [facility] Comment on above: Performed By: #### D ATCBC #### [facility] [address] [place] [address] [address] Pili Mcnamara Hematocrit (Bld) [Volume fraction] 45.8 % Normal 36.0-48.0 [facility] Comment on above: Performed By: #### D ATCBC #### [facility] [address] [place] [address] [address] Pili Mcnamara Hemoglobin (Bld) [Mass/Vol] 15.5 g/dL Normal 12.0-16.0 [facility] Comment on above: Performed By: #### D ATCBC #### [facility] [address] [place] [address] Dr. Pili Mcnamara IG # 0.01 10e3/ul Normal 0.00-0.03 [facility] Comment on above: Performed By: #### D ATCBC #### [facility] [address] [place] [address] Dr. Pili Mcnamara IG % 0.2 % Normal 0.0-0.5 [facility] Comment on above: Performed By: #### D ATCBC #### [facility] [address] [place] [address] Dr. Pili Mcnamara LYMPH # 1.9 103/ul Normal 1.2-3.8 [facility] Comment on above: Performed By: #### D ATCBC #### [facility] [address] [place] [address] Dr. Pili Mcnamara Lymphocytes/100 WBC (Bld) 29.5 % Normal 20.5-60.0 [facility] Comment on above: Performed By: #### D ATCBC #### [facility] [address] [place] [address] Dr. Pili Mcnamara MCH (RBC) [Entitic mass] 29.8 pg Normal 26.7-34.0 [facility] Comment on above: Performed By: #### D ATCBC #### [facility] [address] [place] [address] Dr. Pili Mcnamara MCHC (RBC) [Mass/Vol] 33.8 g/dL Normal 29.9-35.2 [facility] Comment on above: Performed By: #### D ATCBC #### [facility] [address] [place] [address] Dr. Pili Mcnamara MCV (RBC) [Entitic vol] 87.9 fL Normal 81.0-99.0 [facility] Comment on above: Performed By: #### D ATCBC #### [facility] [address] [place] [address] Dr. Pili Mcnamara MONO # 0.7 103/ul Normal 0.3-0.8 [facility] Comment on above: Performed By: #### D ATCBC #### [facility] [address] [place] [address] Dr. Pili Mcnamara Monocytes/100 WBC (Bld) 10.9 % Normal 1.7-12.0 [facility] Comment on above: Performed By: #### D ATCBC #### [facility] [address] [place] [address] Dr. Pili Mcnamara NEUT # 3.5 103/ul Normal 1.4-6.5 [facility] Comment on above: Performed By: #### D ATCBC #### [facility] [address] [place] [address] Dr. Pili Mcnamara Neutrophils/100 WBC (Bld) 56.0 % Normal 43.0-75.0 [facility] Comment on above: Performed By: #### D ATCBC #### [facility] [address] [place] [address] Dr. Pili Mcnamara Platelet mean volume (Bld) [Entitic vol] 9.1 fL Critically low 9.5-13.5 [facility] Comment on above: Performed By: #### D ATCBC #### [facility] [address] [place] [address] Dr. Pili Mcnamara PLT 291 103/ul Normal 150-450 [facility] Comment on above: Performed By: #### D ATCBC #### [facility] [address] [place] [address] Dr. Pili Mcnamara RBC 5.21 106/ul Normal 4.20-5.40 [facility] Comment on above: Performed By: #### D ATCBC #### [facility] [address] [place] [address] Dr. Pili Mcnamara WBC 6.3 103/ul Normal 4.0-11.0 [facility] Comment on above: Performed By: #### D ATCBC #### [facility] [address] [place] [address] Dr. Pili Mcnamara OTILIA - TSHon 02-03-2023 TSH 0.088 uIU/mL Critically low 0.358-3.740 [facility] Comment on above: Performed By: #### D ATBMP, DATTSH #### [facility] [address] [place] [address] Dr. Pili Mcnamara TSH RANGE SEE BELOW Normal [facility] Comment on above: Result Comment: <0.3 4 UIU/ml HYPERTHYROID 0.34-5.60 UIU/ml EUTHYROID >5.60 UIU/ml HYPOTHYROID Performed By: #### D ATBMP, DATTS #### [facility] [address] [place] [address] Dr. Pili Mcnamara OTILIA- BMP WITH LIPIDon 2022 Anion gap [Moles/Vol] 12.7 mmol/L Normal [facility] Comment on above: Performed By: #### D ATBMP, DATTSH #### [facility] [address] [place] [address] Dr. Pili Mcnamara Calcium [Mass/Vol] 9.2 mg/dL Normal 8.5-10.1 [facility] Comment on above: Performed By: #### D ATBMP, DATTSH #### [facility] [address] [place] [address] Dr. Pili Mcnamara Chloride [Moles/Vol] 106 mmol/L Normal 98-107 [facility] Comment on above: Performed By: #### D ATBMP, DATTSH #### [facility] [address] [place] [address] Dr. Pili Mcnamara Cholesterol [Mass/Vol] 229 mg/dL Critically high <=200 [facility] Comment on above: Performed By: #### D ATBMP, DATTSH #### [facility] [address] [address] [address] Pili Mcnamara Cholesterol in HDL [Mass/Vol] 73 mg/dL Critically high 40-60 [facility] Comment on above: Performed By: #### D ATBMP, DATTSH #### [facility] [address] [address] [address] Pili Mcnamara Cholesterol in LDL [Mass/Vol] 140.6 mg/dL Normal [facility] Comment on above: Performed By: #### D ATBMP, DATTSH #### [facility] [address] [place] [address] Dr. Pili Mcnamara CO2 [Moles/Vol] 27.6 mmol/L Normal 21.0-32.0 [facility] Comment on above: Performed By: #### D ATBMP, DATTSH #### [facility] [address] [place] [address] Dr. Pili Mcnamara Creatinine [Mass/Vol] 0.73 mg/dL Normal 0.55-1.02 [facility] Comment on above: Performed By: #### D ATBMP, DATTSH #### [facility] [address] [place] [address] Dr. Pili Mcnamara EGFR-AF LUXEMBOURGER >60 Normal >=60 [facility] Comment on above: Performed By: #### D ATBMP, DATTSH #### [facility] [address] [place] [address] Dr. Pili Mcnamara EGFR-NON AF LUXEMBOURGER >60 Normal >=60 [facility] Comment on above: Performed By: #### D ATBMP, DATTSH #### [facility] [address] [place] [address] Dr. Pili Mcnamara HDL NORMAL > or = 60 mg/dl - LO W CARDIOVASCULAR RISK <40 mg/dl - HIGH CARDIOVASCULAR RISK Normal [facility] Comment on above: Performed By: #### D ATBMP, DATTSH #### [facility] [address] [place] [address] Dr. Pili Mcnamara LDL CALC NORMAL SEE BELOW Normal [facility] Comment on above: Result Comment: <100 mg/dl OPTIMAL 100 - 129 mg/dl NEAR OR ABOVE OPTIMAL 130 - 159 mg/dl BORDERLINE HIGH 160 - 189 mg/dl HIGH >190 mg/dl VERY HIGH Performed By: #### D ATBMP, DATTSH #### [facility] [address] [place] [address] Dr. Pili Mcnamara Potassium [Moles/Vol] 4.3 mmol/L Normal 3.5-5.1 [facility] Comment on above: Performed By: #### D ATBMP, DATTSH #### [facility] [address] [address] [address] Pili Mcnamara Sodium [Moles/Vol] 142 mmol/L Normal 136-145 [facility] Comment on above: Performed By: #### D ATBMP, DATTSH #### [facility] [address] [place] [address] Dr. Pili Mcnamara Triglyceride [Mass/Vol] 77 mg/dL Normal <=150 [facility] Comment on above: Performed By: #### [facility], DATTSH #### [facility] [address] [place] [address] Dr. Pili Mcnamara Urea nitrogen [Mass/Vol] 20.0 mg/dL Critically high 7.0-18.0 [facility] Comment on above: Performed By: #### D ATBMP, DATTSH #### [facility] [address] [place] [address] Dr. Pili Mcnamara Urea nitrogen/Creatinine [Mass ratio] 27.4 mg/mg Normal [facility] Comment on above: Performed By: #### D ATBMP, DATTSH #### [facility] [address] [place] [address] Dr. Pili Mcnamara VLDL CALC 15.4 mg/dL Normal [facility] Comment on above: Performed By: #### D ATBMP, DATTSH #### [facility] [address] [place] [address] Dr. Pili Mcnamara GLYCOHEMOGLOBIN A1Con 2022 ADA RECOMMENDATION SEE BELOW Normal [facility] Comment on above: Result Comment: ADA RECOMMENDED LIMIT 4.0 - 6.0 ADA THERAPEUTIC TARGET < 7.0 ACTION SUGGESTED > 7.0 Performed By: #### D ATA1C #### [facility] [address] [address] [address] Pili Mcnamara Glucose [Mass/Vol] 108 mg/dL Critically high 74-106 [facility] Comment on above: Performed By: #### D ATA1C #### [facility] [address] [address] [address] Pili Mcnamara Performed By: #### D ATBMP, DATTSH #### [facility] [address] [address] [address] Pili Mcnamara HbA1c (Bld) [Mass fraction] 5.4 % Normal 4.5-6.2 [facility] Comment on above: Performed By: #### D ATA1C #### [facility] [address] [address] [address] Pili Mcnamara CNOVon 10-08-2017 CNOV Office Visit (VASSFT) SERENA DAVIS ([id number]) [address] [facility] Ocsovicznd49/15/17 2:40 PM ABIEL STARKS During your visit today, we recorded the following information about you: Pulse Respiration Blood pressure Weight 69/minute 16/minute 170/95 78 kg Height 1.575 Kell Starks MD 10/08/2017 3:09 PM [facility] Department of Cardiovascular MedicineOUTPATIENT VISIT DATE October 08, 2017OUTPATIENT VISIT TYPENEWPRIMARY CARE PHYSICIAN:Rakan Nuñez MD (DrC)[address] [place] [place], [place] [address]Phone: Stu: [phone] PHYSICIANRakan Nuñez MD ([facility])[address] [facility] [place] [address]JVPBR COMPLAINT:No chief complaint on file.HISTORY OF PRESENT [...] of time on her feet, 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 Legelevation when at rest.Have CD from [facility] sent to office for review.YOSELYN Montanoefjeremy Provider: RAKAN NUÑEZ [[id number]]Allergies As of Date: 10/08/2017(No Known Allergies)Date Reviewed: [...] 10/08/2017(None)Follow -up and Disposition History RecordedEncounter Number: [id number] Status:Closed by ABIEL STARKS MD on 10/08/17 [facility] PROGRESSon 10-08-2017 PROGRESS HNO ID: [id number]: Abiel StarksSer: (none)Author Type: PhysicianType: Progress NotesFiled: 10/08/2017 3:09 PMNote Text:[facility] Department of Cardiovascular MedicineOUTPATIENT VISIT DATE October 08, 2017OUTPATIENT VISIT TYPENEWPRIMARY CARE PHYSICIAN:Rakan Nuñez MD ([facility])[address] 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.DUS performed at [facility]: this was negative for insufficiency ineither the [...] kg (172 lb) SpO2 96% BMI 31.46 kg/k3Revxpjn appearance: well nourished, alert and cooperative individual, [...] interim.Leg elevation when at rest.Have CD from [facility] sent to office for review.Abiel Starks MD Normal [facility] Vital Signs Date Time Vital Sign Value Performing Clinician Facility 01-13-2025 11:27-0500 Body height 154.94 cm Rocketmiles DO Work Phone: [facility] 01-13-2025 11:27-0500 Body mass index (BMI) [Ratio] 33.3 kg/m2 Rakan Box Jump DO Work Phone: [facility] 01-13-2025 11:27-0500 Body weight 79.94 kg Rkaan Box Jump DO Work Phone: [facility] 01-13-2025 11:27-0500 Diastolic blood pressure 84 mm[Hg] Rakan Ball DO Work Phone: [facility] 01-13-2025 11:27-0500 Heart rate 80 /min Rocketmiles DO Work Phone: [facility] 01-13-2025 11:27-0500 Respiratory rate 12 /min Rakan Box Jump DO Work Phone: [facility] 01-13-2025 11:27-0500 Systolic blood pressure 154 mm[Hg] Rocketmiles DO Work Phone: [facility] 09-02-2024 18:26-0400 Body height 156.21 cm [facility] 09-02-2024 18:26-0400 Body mass index (BMI) [Ratio] 30.7 kg/m2 [facility] 09-02-2024 18:26-0400 Body temperature 97.2 [degF] [facility] 09-02-2024 18:26-0400 Body weight 74.89 kg [facility] 09-02-2024 18:26-0400 Diastolic blood pressure 83 mm[Hg] [facility] 09-02-2024 18:26-0400 Heart rate 105 /min [facility] 09-02-2024 18:26-0400 Respiratory rate 21 /min [facility] 09-02-2024 18:26-0400 SaO2% (BldA) [Mass fraction] 99 % [facility] 09-02-2024 18:26-0400 Systolic blood pressure 137 mm[Hg] [facility] 03-31-2024 09:49-0400 Body height 154.[address] Jocelin Wells Work Phone: [facility] 03-31-2024 09:49-0400 Body mass index (BMI) [Ratio] 29.2 kg/m2 Dr. Jocelin Wells Work Phone: [facility] 03-31-2024 09:49-0400 Body temperature 97.7 [degF] Dr. Jocelin Wells Work Phone: [facility] 03-31-2024 09:49-0400 Body weight 70.[address] Jocelin Wells Work Phone: [facility] 03-31-2024 09:49-0400 Diastolic blood pressure 83 mm[Hg] Dr. Jocelin Wells Work Phone: [facility] 03-31-2024 09:49-0400 Heart rate 83 /min Dr. Jocelin Wells Work Phone: [facility] 03-31-2024 09:49-0400 Respiratory rate 16 /min Dr. Jocelin Wells Work Phone: [facility] 03-31-2024 09:49-0400 SaO2% (BldA) [Mass fraction] 94 % Dr. Jocelin Wells Work Phone: [facility] 03-31-2024 09:49-0400 Systolic blood pressure 144 mm[Hg] Dr. Jocelin Wells Work Phone: [facility] 03-17-2024 10:33-0400 Body height 154.[address] Jocelin Wells Work Phone: [facility] 03-17-2024 10:33-0400 Body mass index (BMI) [Ratio] 29.3 kg/m2 Dr. Jocelin Wells Work Phone: [facility] 03-17-2024 10:33-0400 Body temperature 98.5 [degF] Dr. Jocelin Wells Work Phone: [facility] 03-17-2024 10:33-0400 Body weight 70.[address] Jocelin Wells Work Phone: [facility] 03-17-2024 10:33-0400 Diastolic blood pressure 81 mm[Hg] Dr. Jocelin Wells Work Phone: [facility] 03-17-2024 10:33-0400 Heart rate 82 /min Dr. Jocelin Wells Work Phone: [facility] 03-17-2024 10:33-0400 Respiratory rate 16 /min Dr. Jocelin Wells Work Phone: [facility] 03-17-2024 10:33-0400 SaO2% (BldA) [Mass fraction] 99 % Dr. Jocelin Wells Work Phone: [facility] 03-17-2024 10:33-0400 Systolic blood pressure 145 mm[Hg] Dr. Jocelin Wells Work Phone: [facility] 03-03-2024 10:05-0400 Body height 154.[address] Jocelin Wells Work Phone: [facility] 03-03-2024 10:05-0400 Body mass index (BMI) [Ratio] 29.3 kg/m2 Dr. Jocelin Wells Work Phone: [facility] 03-03-2024 10:05-0400 Body temperature 98.3 [degF] Dr. Jocelin Wells Work Phone: [facility] 03-03-2024 10:05-0400 Body weight 70.[address] Jocelin Wells Work Phone: [facility] 03-03-2024 10:05-0400 Diastolic blood pressure 82 mm[Hg] Dr. Jocelin Wells Work Phone: [facility] 03-03-2024 10:05-0400 Heart rate 79 /min Dr. Jocelin Wells Work Phone: [facility] 03-03-2024 10:05-0400 Respiratory rate 16 /min Dr. Jocelin Wells Work Phone: [facility] 03-03-2024 10:05-0400 SaO2% (BldA) [Mass fraction] 97 % Dr. Jocelin Wells Work Phone: [facility] 03-03-2024 10:05-0400 Systolic blood pressure 153 mm[Hg] Dr. Jocelin Wells Work Phone: [facility] 02-25-2024 09:51-0400 Body height 154.[address] Jocelin Wells Work Phone: [facility] 02-25-2024 09:51-0400 Body mass index (BMI) [Ratio] 29.1 kg/m2 Dr. Jocelin Wells Work Phone: [facility] 02-25-2024 09:51-0400 Body temperature 98.4 [degF] Dr. Jocelin Wells Work Phone: [facility] 02-25-2024 09:51-0400 Body weight 70.[address] Jocelin Wells Work Phone: [facility] 02-25-2024 09:51-0400 Diastolic blood pressure 78 mm[Hg] Dr. Jocelin Wells Work Phone: [facility] 02-25-2024 09:51-0400 Heart rate 80 /min Dr. Jocelin Wells Work Phone: [facility] 02-25-2024 09:51-0400 Respiratory rate 16 /min Dr. Jocelin Wells Work Phone: [facility] 02-25-2024 09:51-0400 SaO2% (BldA) [Mass fraction] 98 % Dr. Jocelin Wells Work Phone: [facility] 02-25-2024 09:51-0400 Systolic blood pressure 130 mm[Hg] Dr. Jocelin Wells Work Phone: [facility] 02-11-2024 10:29-0400 Body height 154.[address] Jocelin Wells Work Phone: [facility] 02-11-2024 10:29-0400 Body mass index (BMI) [Ratio] 28.7 kg/m2 Dr. Jocelin Wells Work Phone: [facility] 02-11-2024 10:29-0400 Body temperature 97.8 [degF] Dr. Jocelin Wells Work Phone: [facility] 02-11-2024 10:29-0400 Body weight [address] Jocelin Wells Work Phone: [facility] 02-11-2024 10:29-0400 Diastolic blood pressure 83 mm[Hg] Dr. Jocelin Wells Work Phone: [facility] 02-11-2024 10:29-0400 Heart rate 83 /min Dr. Jocelin Wells Work Phone: [facility] 02-11-2024 10:29-0400 Respiratory rate 16 /min Dr. Jocelin Wells Work Phone: [facility] 02-11-2024 10:29-0400 SaO2% (BldA) [Mass fraction] 97 % Dr. Jocelin Wells Work Phone: [facility] 02-11-2024 10:29-0400 Systolic blood pressure 136 mm[Hg] Dr. Jocelin Wells Work Phone: [facility] 02-04-2024 10:14-0400 Body height 154.[address] Jocelin Wells Work Phone: [facility] 02-04-2024 10:14-0400 Body mass index (BMI) [Ratio] 28.8 kg/m2 Dr. Jocelin Wells Work Phone: [facility] 02-04-2024 10:14-0400 Body temperature 97.4 [degF] Dr. Jocelin Wells Work Phone: [facility] 02-04-2024 10:14-0400 Body weight 69.[address] Jocelin Wells Work Phone: [facility] 02-04-2024 10:14-0400 Diastolic blood pressure 73 mm[Hg] Dr. Jocelin Wells Work Phone: [facility] 02-04-2024 10:14-0400 Heart rate 79 /min Dr. Jocelin Wells Work Phone: [facility] 02-04-2024 10:14-0400 Respiratory rate 16 /min Dr. Jocelin Wells Work Phone: [facility] 02-04-2024 10:14-0400 SaO2% (BldA) [Mass fraction] 94 % Dr. Jocelin Wells Work Phone: [facility] 02-04-2024 10:14-0400 Systolic blood pressure 120 mm[Hg] Dr. Jocelin Wells Work Phone: [facility] 01-30-2024 17:22-0500 Body temperature 98.1 [degF] Dr. Jocelin Wells Work Phone: [facility] 01-30-2024 17:22-0500 Diastolic blood pressure 65 mm[Hg] Dr. Jocelin Wells Work Phone: [facility] 01-30-2024 17:22-0500 Heart rate 77 /min Dr. Jocelin Wells Work Phone: [facility] 01-30-2024 17:22-0500 Respiratory rate 16 /min Dr. Jocelin Wells Work Phone: [facility] 01-30-2024 17:22-0500 SaO2% (BldA) [Mass fraction] 94 % Dr. Jocelin Wells Work Phone: [facility] 01-30-2024 17:22-0500 Systolic blood pressure 127 mm[Hg] Dr. Jocelin Wells Work Phone: [facility] 01-30-2024 06:30-0500 Body height 154.[address] Jocelin Wells Work Phone: [facility] 01-30-2024 06:30-0500 Body mass index (BMI) [Ratio] 29.5 kg/m2 Dr. Jocelin Wells Work Phone: [facility] 01-30-2024 06:30-0500 Body weight [address] Jocelin Wells Work Phone: [facility] 01-14-2024 10:43-0500 Body height 154.[address] Jocelin Wells Work Phone: [facility] 01-14-2024 10:43-0500 Body mass index (BMI) [Ratio] 29 kg/m2 Dr. Jocelin Wells Work Phone: [facility] 01-14-2024 10:43-0500 Body temperature 97.7 [degF] Dr. Jocelin Wells Work Phone: [facility] 01-14-2024 10:43-0500 Body weight 69.[address] Jocelin Wells Work Phone: [facility] 01-14-2024 10:43-0500 Diastolic blood pressure 85 mm[Hg] Dr. Jocelin Wells Work Phone: [facility] 01-14-2024 10:43-0500 Heart rate 80 /min Dr. Jocelin Wells Work Phone: [facility] 01-14-2024 10:43-0500 Respiratory rate 16 /min Dr. Jocelin Wells Work Phone: [facility] 01-14-2024 10:43-0500 Systolic blood pressure 142 mm[Hg] Dr. Jocelin Wells Work Phone: [facility] 01-02-2024 09:00-0500 Body height 156.21 cm Rakan Box Jump Other [employer] Other 01-02-2024 09:00-0500 Body mass index (BMI) [Ratio] 28.92 kg/m2 Rakan Ball Other [employer] Other 01-02-2024 09:00-0500 Body weight 70.58 kg Rakan Ball Other [employer] Other 01-02-2024 09:00-0500 Diastolic blood pressure 84 mm[Hg] Rakan Ball Other [employer] Other 01-02-2024 09:00-0500 Respiratory rate 12 /min Rakan Ball Other [employer] Other 01-02-2024 09:00-0500 Systolic blood pressure 131 mm[Hg] Rakan Ball Other [employer] Other 12-30-2023 10:52-0500 Body mass index (BMI) [Ratio] 29.5 kg/m2 Dr. Jocelin Wells Work Phone: [facility] 12-30-2023 10:52-0500 Body temperature 97.4 [degF] Dr. Jocelin Wells Work Phone: [facility] 12-30-2023 10:52-0500 Body weight 70.[address] Jocelin Wells Work Phone: [facility] 12-30-2023 10:52-0500 Diastolic blood pressure 83 mm[Hg] Dr. Jocelin Wells Work Phone: [facility] 12-30-2023 10:52-0500 Heart rate 85 /min Dr. Jocelin Wells Work Phone: [facility] 12-30-2023 10:52-0500 Respiratory rate 16 /min Dr. Jocelin Wells Work Phone: [facility] 12-30-2023 10:52-0500 SaO2% (BldA) [Mass fraction] 98 % Dr. Jocelin Wells Work Phone: [facility] 12-30-2023 10:52-0500 Systolic blood pressure 146 mm[Hg] Dr. Jocelin Wells Work Phone: [facility] 12-25-2023 14:50-0500 Body height 156.21 cm Rakan Ball Other [employer] Other 12-25-2023 14:50-0500 Body mass index (BMI) [Ratio] 28.59 kg/m2 Rakan Ball Other [employer] Other 12-25-2023 14:50-0500 Body weight 69.76 kg Rakan Ball Other [employer] Other 12-25-2023 14:50-0500 Diastolic blood pressure 74 mm[Hg] Rakan Ball Other [employer] Other 12-25-2023 14:50-0500 Systolic blood pressure 122 mm[Hg] Rakan Ball Other [employer] Other 12-03-2023 09:00-0500 Body height 156.21 cm Rakan Ball Other [employer] Other 12-03-2023 09:00-0500 Body mass index (BMI) [Ratio] 29.18 kg/m2 Rakan Ball Other [employer] Other 12-03-2023 09:00-0500 Body weight 71.22 kg Rakan Ball Other [employer] Other 12-03-2023 09:00-0500 Diastolic blood pressure 76 mm[Hg] Rakan Ball Other [employer] Other 12-03-2023 09:00-0500 Respiratory rate 12 /min Rakan Ball Other [employer] Other 12-03-2023 09:00-0500 Systolic blood pressure 116 mm[Hg] Rakan Ball Other [employer] Other 11-25-2023 09:46-0500 Body mass index (BMI) [Ratio] 30.1 kg/m2 Dr. Jocelin Wells Work Phone: [facility] 11-25-2023 09:46-0500 Body temperature 97.6 [degF] Dr. Jocelin Wells Work Phone: [facility] 11-25-2023 09:46-0500 Body weight 72.[address] Jocelin Wells Work Phone: [facility] 11-25-2023 09:46-0500 Diastolic blood pressure 82 mm[Hg] Dr. Jocelin Wells Work Phone: [facility] 11-25-2023 09:46-0500 Heart rate 80 /min Dr. Jocelin Wells Work Phone: [facility] 11-25-2023 09:46-0500 Respiratory rate 16 /min Dr. Jocelin Wells Work Phone: [facility] 11-25-2023 09:46-0500 SaO2% (BldA) [Mass fraction] 94 % Dr. Jocelin Wells Work Phone: [facility] 11-25-2023 09:46-0500 Systolic blood pressure 138 mm[Hg] Dr. Jocelin Wells Work Phone: [facility] 11-10-2023 14:34-0500 Body height 156.21 cm Rakan Ball Other [employer] [facility] [employer] Other 11-10-2023 14:34-0500 Body mass index (BMI) [Ratio] 29.29 kg/m2 Rakan Ball Other [employer] Other 11-10-2023 14:34-0500 Body weight 71.49 kg Rakan Ball Other [employer] Other 11-10-2023 14:34-0500 Diastolic blood pressure 74 mm[Hg] Rakan Ball Other [employer] Other 11-10-2023 14:34-0500 Systolic blood pressure 142 mm[Hg] Rakan Ball Other [employer] Other 09-26-2023 15:09-0400 Body height 156.21 cm Rakan Ball Other [employer] Other 09-26-2023 15:09-0400 Body mass index (BMI) [Ratio] 28.92 kg/m2 Rakan Ball Other [employer] Other 09-26-2023 15:09-0400 Body weight 70.58 kg Rakan Ball Other [employer] Other 09-26-2023 15:09-0400 Diastolic blood pressure 78 mm[Hg] Rakan Ball Other [employer] Other 09-26-2023 15:09-0400 Systolic blood pressure 122 mm[Hg] Rakan Ball Other [employer] Other 08-20-2023 14:45-0400 Body height 156.21 cm Rakan Ball Other [employer] Other 08-20-2023 14:45-0400 Body mass index (BMI) [Ratio] 29.18 kg/m2 Rakan Ball Other [employer] Other 08-20-2023 14:45-0400 Body weight 71.22 kg Rakan Ball Other [employer] Other 08-20-2023 14:45-0400 Diastolic blood pressure 72 mm[Hg] Rakan Ball Other [employer] Other 08-20-2023 14:45-0400 Systolic blood pressure 112 mm[Hg] Rakan Ball Other [employer] Other 07-11-2023 12:15-0400 Body height 156.21 cm Rakan Ball Other [employer] Other 07-11-2023 12:15-0400 Body mass index (BMI) [Ratio] 29.78 kg/m2 Rakan Ball Other [employer] Other 07-11-2023 12:15-0400 Body weight 72.67 kg Rakan Ball Other [employer] Other 07-11-2023 12:15-0400 Diastolic blood pressure 80 mm[Hg] Rakan Ball Other [employer] Other 07-11-2023 12:15-0400 Systolic blood pressure 130 mm[Hg] Rakan Ball Other [employer] Other 05-28-2023 12:54-0400 Body weight 74.3 kg Rakan Ball Other [employer] [employer] Other 05-28-2023 12:54-0400 Diastolic blood pressure 77 mm[Hg] Rakan Ball Other [employer] Other 05-28-2023 12:54-0400 Systolic blood pressure 143 mm[Hg] Rakan Ball Other [employer] Other 05-14-2023 13:51-0400 Body height 154.[address] JOAQUIN Majano [facility] 05-14-2023 13:51-0400 Body mass index (BMI) [Ratio] 31.8 kg/m2 DR NUÑEZ [facility] 05-14-2023 13:51-0400 Body temperature 98.7 [degF] DR JOAQUIN Majano [facility] 05-14-2023 13:51-0400 Body weight 76.[address] JOAQUIN Majano [facility] 05-14-2023 13:51-0400 Diastolic blood pressure 80 mm[Hg] DR JOAQUIN Majano [facility] 05-14-2023 13:51-0400 Heart rate 79 /min DR JOAQUIN Majano [facility] 05-14-2023 13:51-0400 Respiratory rate 16 /min DR JOAQUIN Majano [facility] 05-14-2023 13:51-0400 SaO2% (BldA) [Mass fraction] 97 % DR NUÑEZ [facility] 05-14-2023 13:51-0400 Systolic blood pressure 138 mm[Hg] DR JOAQUIN Majano [facility] 02-07-2023 15:30-0400 Body height 156.21 cm Rakan Joaquin Other [employer] Other 02-07-2023 15:30-0400 Body mass index (BMI) [Ratio] 33.98 kg/m2 Rakan Joaquin Other [employer] Other 02-07-2023 15:30-0400 Body weight 82.92 kg Rakan Nuñez Other [employer] Other 02-07-2023 15:30-0400 Diastolic blood pressure 99 mm[Hg] Rakan Nuñez Other [employer] Other 02-07-2023 15:30-0400 Respiratory rate 12 /min Rakan Nuñez Other [employer] Other 02-07-2023 15:30-0400 Systolic blood pressure 163 mm[Hg] Rakan Nuñez Other [employer] Other Encounters Encounter Date Encounter Type Care Provider Facility Start: 01-13-2025 End: 01-13-2025 ambulatory Rakan Joaquin DO Work Phone: [facility] Work Phone: Start: 01-13-2025 End: 01-13-2025 Patient encounter procedure Rakan Joaquin DO Work Phone: [facility] Work Phone: Start: 11-09-2024 End: 11-09-2024 Patient encounter procedure Rakan Ball DO Work Phone: [facility] Work Phone: Start: 11-09-2024 End: 11-09-2024 ambulatory Rakan Ball Facility:[facility] Start: 10-12-2024 End: 10-12-2024 ambulatory Rakan Ball DO Work Phone: [facility] Work Phone: Start: 10-12-2024 End: 10-12-2024 Patient encounter procedure Rakan Ball DO Work Phone: [facility] Work Phone: Start: 09-21-2024 End: 09-21-2024 ambulatory DO Arkan Ball Work Phone: [facility] Work Phone: Start: 09-21-2024 End: 09-21-2024 Patient encounter procedure DO Rakan Ball Work Phone: [facility] Work Phone: Start: 09-07-2024 End: 09-07-2024 ambulatory [facility] Work Phone: Start: 09-07-2024 End: 09-07-2024 Patient encounter procedure [facility] Work Phone: Start: 09-02-2024 End: 09-02-2024 Patient encounter procedure [facility] Work Phone: Start: 09-02-2024 End: 09-02-2024 ambulatory Rakan Ball [facility] Work Phone: Start: 06-11-2024 Non-patient / Non-visit [facility] Work Phone: Start: 04-28-2024 End: 04-28-2024 ambulatory Jocelin Priscilla Facility:[facility] Start: 03-31-2024 End: 03-31-[address] Jocelin Wells Work Phone: [facility] Work Phone: Start: 03-31-2024 End: 03-31-[address] Jocelin Wells Work Phone: [facility] Work Phone: Start: 03-17-2024 End: 03-17-[address] Jocelin Wells Work Phone: [facility] Work Phone: Start: 03-17-2024 End: 03-17-[address] Jocelin Wells Work Phone: [facility] Work Phone: Start: 03-03-2024 End: 03-03-[address] Jocelin Wells Work Phone: [facility] Work Phone: Start: 03-03-2024 End: 03-03-[address] Jocelin Wells Work Phone: [facility] Work Phone: Start: 02-25-2024 End: 02-25-[address] Jocelin Wells Work Phone: [facility] Work Phone: Start: 02-25-2024 End: 02-25-[address] Jocelin Wells Work Phone: [facility] Work Phone: Start: 02-11-2024 End: 02-11-[address] Jocelin Wells Work Phone: [facility] Work Phone: Start: 02-11-2024 End: 02-11-[address] Jocelin Wells Work Phone: [facility] Work Phone: Start: 02-11-2024 Encounter for other preprocedural examination Jocelin Wells [facility] Start: 02-04-2024 End: 02-04-[address] Jocelin Wells Work Phone: [facility] Work Phone: Start: 02-04-2024 End: 02-04-[address] Jocelin Wells Work Phone: [facility] Work Phone: Start: 01-30-2024 ambulatory Jocelin Wells Facility :[facility] Start: 01-30-2024 Non-patient / Non-visit Dr. Pratt Work Phone: [facility] Start: 01-30-2024 End: 01-30-2024 Admission to same day surgery center Dr. Jocelin Wells Work Phone: [facility] Start: 01-30-2024 End: 01-30-[address] Jocelin Wells Work Phone: [facility] Work Phone: Start: 01-14-2024 End: 01-14-[address] Jocelin Wells Work Phone: [facility] Work Phone: Start: 01-14-2024 End: 01-14-2024 ambulatory Jocelin Wells [facility] Work Phone: Start: 01-02-2024 End: 01-02-2024 ambulatory Rakan Nuñez Other [employer] Other Start: 01-02-2024 Encounter for other preprocedural examination Rakan Nuñez [facility] Start: 01-02-2024 Office outpatient vi sit 25 minutes Rakan Nuñez [facility] Start: 12-30-2023 End: 12-30-[address] Jocelin Wells Work Phone: [facility] Work Phone: Start: 12-25-2023 End: 12-25-2023 ambulatory Rakan Nuñez Other [employer] Other Start: 12-25-2023 Telephone encounter Rakan Nuñez [facility] Start: 12-03-2023 End: 12-03-2023 ambulatory aRkan Nuñez Other [employer] Other Start: 12-03-2023 Patient encounter procedure Rakan Nuñez [facility] Start: 11-25-2023 End: 11-25-[address] Jocelin Wells Work Phone: [facility] Work Phone: Start: 11-10-2023 End: 11-10-2023 ambulatory Rakan Nuñez Other [employer] Other Start: 11-10-2023 Telephone encounter Rakan Nuñez [facility] Start: 10-01-2023 End: 10-01-2023 ambulatory Rakan Nuñez Other [employer] Other Start: 10-01-2023 Telephone encounter Rakan Nuñez [facility] Start: 09-26-2023 End: 09-26-2023 ambulatory Rakan Nuñez Other [employer] Other Start: 09-26-2023 Telephone encounter Rakan Nuñez [facility] Start: 08-20-2023 End: 08-20-2023 ambulatory Rakan Ball Other [employer] Other Start: 08-20-2023 Telephone encounter Rakan Nuñez [facility] Start: 07-11-2023 End: 07-11-2023 ambulatory Rakan Nuñez Other [employer] Other Start: 07-11-2023 Telephone encounter Rakan Nuñez [facility] Start: 05-28-2023 End: 05-28-2023 ambulatory Rakan Nuñez Other [employer] Other Start: 05-28-2023 Telephone encounter Rakan CROWE [facility] Start: 05-14-2023 End: 05-14-[address] LATIA NUÑEZ [facility] Work Phone: Start: 05-14-2023 End: 05-14-[address] NUÑEZ [facility] Start: 02-07-2023 End: 02-07-2023 ambulatory Rakan Nuñez Other [employer] Other Start: 02-07-2023 Office outpatient vi sit 15 minutes Rakan Joaquin [facility] Start: 02-04-2023 End: 02-04-2023 ambulatory Rakan Nuñez Other [employer] Other Start: 02-04-2023 Telephone encounter Rakan Nuñez [facility] Start: 02-03-2023 End: 02-04-[address] VITAL LISTED REQUEST Facility: Start: 10-08-2017 End: 10-13-2017 Ambulatory ABIEL STARKS [facility] Procedures Date Procedure Procedure Detail Performing [...] right ankle XR ankle RT min 3V* [facility] Start: 10-12-2024 XR Ankle - right GE 3 Views [facility] Start: 09-21-2024 X-ray of right ankle XR ankle RT min 3V* [facility] Start: 09-21-2024 XR Ankle - right GE 3 Views [facility] Start: 01-30-2024 Anes lower ant abdom inal wall panniculectomy ANESTH FAT LAYER REMOVAL [facility] Start: 01-30-2024 Excision skin abd infraumbilical panniculectomy EXC SKIN ABD [facility] Start: 01-30-2024 Incentive spirometry Wo [facility] Start: 01-30-2024 [facility] Start: 01-30-2024 Patient discharge [facility] [place] Ankle - right GE 3 Views [facility] Immunizations Immunization Date Immunization Notes Care Provider Fa cility 10-29-2021 COVID-19 Vaccine Pfi zer - Documentation Purposes Only Rakan Nuñez Other [facility] 02-02-2021 COVID-19 Vaccine Blas ssen - Documentation Purposes Only Rakan Nuñez Other [facility] 03-05-2015 tetanus toxoid, redu svitlana diphtheria toxoid, and acellular pertussis vaccine, adsorbed Rakan Nuñez Other [facility] Payers Date Payer Category Payer Unknown [id number] 2023 Self-pay 2023 Unknown [id number] 1961 Self-pay [id number] Medicare [id number] Unknown [id number] 01.09.84 [id number] Unknown [id number] Unknown [facility] 0 [id number] Unknown [id number] 2.16.8 [id number] Unknown [id number] 2.16.8 [id number] Unknown [id number] 2.16.8 [id number] Unknown [id number] 2.16.8 [id number] Unknown [id number] 2.16.8 [id number] Unknown [id number] 2.16.8 [id number] Unknown [id number] 2.16.8 [id number] Unknown [id number] 2.16.8 [id number] Unknown [id number] 2.16.8 [id number] Unknown [id number] 2.16.8 [id number] Unknown [id number] 2.16.8 [id number] Unknown [id number] 2.16.8 [id number] Unknown [id number] 2.16.8 [id number] Unknown [id number] 2.16.8 [id number] Social History Date Type Detail Facility Sex Assigned At [employer] Other Start: 05-14-2023 End: 01-14-2024 Tobacco smoking status NHIS Unknown if ever smoked [facility] Start: 1960 Sex Assigned At Female [facility] Start: 01-06-2024 End: 01-06-2024 Tobacco smoking status NHIS Never smoked tobacco (finding) [facility] Start: 10-12-2024 End: 01-13-2025 Sex Female (finding) [facility] NEGATED: Highlighted row [facility] Goals Date Patient Goal Desired Activity /State Mental Status Date Assessment Result Facility 01-30-2024 Cognitive function Voice/Name [facility] Work Phone: Clinical Notes 02-07-2023 to 11-09-2024 [...] visit, initial noneactive January 13, 2025 11:13am [facility] Work Phone: 1(200) 460-210610-10-2024 Evaluation note* Diagnosis Onset Date Resolution Status Admit Date Fracture of right ankle, lateral malleolus acute September 02, 2024 6:25pm Fracture of right ankle, lateral malleolus acute September 07, 2024 9:42am Fracture of right ankle, lateral malleolus acute September 21, 2024 1:34pm Fracture of right ankle, lateral malleolus acute October 12, 2024 12:53pm [facility] Work Phone: 1(254) 561-475703-08-2024 Discharge summary Author Jocelin Wells [facility] January 30, 2024 12:32pm Note Date/Time January 30, 2024 12:3 1pm [facility] Medical Records Department [address] [place] [address] Instructions for Home/Discharge Instructions 01/30/24 1229 MR#: [id number] Acct: [id number] Name: BRENDA DAVIS Rep # :[id number] : 1960 63 From: Jocelin Wells MD [...] 500 mg PO BID Qty: 14 0RF kxtzyxhzfgbn-Nx-mrpq-minerals Tablet 1 tab PO DAILY Disposition Disposition (needs filled in before D/C Order can be placed): Home, Self Care 01/30/24 1232<Electronically signed by Jocelin Wells MD>Jocelin Wells MD CC: RAKAN NUÑEZ ~ Signed [facility] Work Phone: 1(344) 426-381103-08-2024 Procedure [facility] 01-30-2024 History and physical note Author Jocelin Wells [facility] January 30, 2024 7:38am Note Date/Time January 30, 2024 7:35 am [facility] Medical Records Department [address] [place] [address] History & Physical Exam 01/30/24 0733 MR#: [id number] Acct: [id number] Name: BRENDA DAVIS Rep # :[id number] : 1960 63 From: Jocelin Wells MD PCP: RAKAN NUÑEZ Status[facility] Location: [place] [address] History and Physical Date of Admission: 01/30/24 [...] RAKAN NUÑEZ; Dr. Jocelin Wells MD~ Signed [facility] Work Phone: 1(398) 617-111903-08-2024 [facility] Medical Records Department [address] [place] [address] History Physical Exam 01/30/24 0733 MR#: [id number] Acct: [id number] Name: BRENDA DAVIS Rep #: [id number] : 1960 63 From: Jocelin Wells MD PCP: RAKAN NUÑEZ Status:REG [facility] Location: [place] [address] History and Physical Date of Admission: 01/30/24 [...] CC: RAKAN NUÑEZ; Dr. [facility]ocelin [facility] Evaluation note* Encounter Date Diagnosis Assessment Notes [...] Stable, no suspicious nodules per thyroid US. [employer] Other 02-01-2024 Evaluation note* Encounter Date Diagnosis Assessment Notes Treatment Notes Treatment Clinical Notes Dec, Overweight (ICD-10 - E66.3) [employer] Other 01-10-2024 Evaluation note* Encounter Date Diagnosis [...] Screening for colon cancer (ICD-10 - Z12.11) [employer] Other 12-18-2023 Evaluation note* Encounter Date Diagnosis Assessment Notes Treatment Notes Treatment Clinical Notes Oct, Other obesity due to excess calories (ICD-10 - E66.09) [employer] Other 11-08-2023 Evaluation note* Encounter Date Diagnosis Assessment Notes Treatment Notes Treatment Clinical Notes Sep, Other obesity due to excess calories (ICD-10 - E66.09) [employer] Other 11-03-2023 Evaluation note* Encounter Date Diagnosis Assessment Notes Treatment Notes Treatment Clinical Notes Sep, Other obesity due to excess calories (ICD-10 - E66.09) [employer] Other 09-27-2023 Evaluation note* Encounter Date Diagnosis Assessment Notes Treatment Notes Treatment Clinical Notes Jul, Other obesity due to excess calories (ICD-10 - E66.09) [employer] Other 08-18-2023 Evaluation note* Encounter Date Diagnosis Assessment Notes Treatment Notes Treatment Clinical Notes Jun, Other obesity due to excess calories (ICD-10 - E66.09) [employer] Other 07-05-2023 Evaluation note* Encounter Date Diagnosis Assessment Notes Treatment Notes Treatment Clinical Notes May, Other obesity due to excess calories (ICD-10 - E66.09) [employer] Other 03-17-2023 Evaluation note* Encounter Date Diagnosis [...] (ICD-10 - F41.1) Healthy diet and exercise [employer] Other Evaluation noteNo InformationNort Primary [employer] Other Evaluation note* Diagnosis Onset Date Resolution Status Atrophic skin acute Localized adiposity acute [facility] Work Phone: Evaluation note* Diagnosis Onset Date Resolution Status Atrophic skin acute Localized adiposity acute Atrophic skin acute Localized adiposity acute Atrophic skin acute Localized adiposity acute [facility] Work Phone: Evaluation note* Diagnosis Onset Date Resolution Status Atrophic skin acute Localized adiposity acute Atrophic skin acute Localized adiposity acute Atrophic skin acute Encounter for cosmetic procedure acute Localized adiposity acute Atrophic skin acute Encounter for cosmetic procedure acute Localized adiposity acute [facility] Work Phone: Evaluation note* Diagnosis Onset Date Resolution Status Atrophic skin acute Localized adiposity acute Atrophic skin acute Localized adiposity acute Atrophic skin acute Encounter for cosmetic procedure acute Localized adiposity acute Atrophic skin acute Encounter for cosmetic procedure acute Localized adiposity acute Status post abdominoplasty a [facility] Work Phone: Evaluation note* Diagnosis Onset Date Resolution Status Atrophic skin acute Localized adiposity acute Atrophic skin acute Localized adiposity acute Atrophic skin acute Encounter for cosmetic procedure acute Localized adiposity acute Atrophic skin acute Encounter for cosmetic procedure acute Localized adiposity acute Status post abdominoplasty a cute Status post abdominoplasty a [facility] Work Phone: Evaluation note* Diagnosis Onset Date Resolution Status Atrophic skin acute Localized adiposity acute Atrophic skin acute Localized adiposity acute Atrophic skin acute Encounter for cosmetic procedure acute Localized adiposity acute Atrophic skin acute Encounter for cosmetic procedure acute Localized adiposity acute Status post abdominoplasty a cute Status post abdominoplasty a cute Status post abdominoplasty a [facility] Work Phone: Evaluation note* Diagnosis Onset Date Resolution Status Atrophic skin acute Localized adiposity acute Atrophic skin acute Localized adiposity acute Atrophic skin acute Encounter for cosmetic procedure acute Localized adiposity acute Atrophic skin acute Encounter for cosmetic procedure acute Localized adiposity acute Status post abdominoplasty a cute Status post abdominoplasty a cute Status post abdominoplasty a cute Status post abdominoplasty a [facility] Work Phone: Evaluation note* Diagnosis Onset Date Resolution Status Atrophic skin acute Localized adiposity acute Atrophic skin acute Encounter for cosmetic procedure acute Localized adiposity acute Atrophic skin acute Encounter for cosmetic procedure acute Localized adiposity acute Status post abdominoplasty a cute Status post abdominoplasty a cute Status post abdominoplasty a cute Status post abdominoplasty a cute Status post abdominoplasty a [facility] Work Phone: Evaluation note* Diagnosis Onset Date Resolution Status Fracture of right ankle, lateral malleolus acute [facility] Work Phone: Evaluation note* Diagnosis Onset Date Resolution Status Fracture of right ankle, lateral malleolus acute Fracture of right ankle, lateral malleolus acute Fracture of right ankle, lateral malleolus acute [facility] Work Phone: History general Narrative - Reported* Type Description Date Medical History Hypothyroid Medical History Autoimmune hypothyroidism Surgical History FNA THYROID NODULE 2014 Hospitalization History broken leg as a child [employer] Other Summary Purpose Family History Relationship Condition [...] Will No January 09 4:11pm Power of Washer Assembler Yes January 09, 2024 4:11pm Advance Directive Response Recorded Date/ Time Name of Medical Power of Washer Assembler JAZ HWANG JINA ADAMS January 09, 2024 4:11pm Living Will No January 09 4:11pm Power of Washer Assembler Yes January 09, 2024 4:11pm Advance Directive Response Recorded Date/ Time Name of Medical Power of Washer Assembler JAZ HWANG JINA ADAMS January 09, 2024 5:11pm Living Will No January 09 5:11pm Power of Washer Assembler Yes January 09, 2024 5:11pm Advance Directive [...] section and content) DATE CREATED AUTHOR 05/19/2018 [facility] DATE CREATED AUTHOR AUTHOR'S ORGANIZ ATION 02/04/2023 [facility] DATE CREATED AUTHOR AUTHOR'S ORGANIZ ATION 11/12/2024 [facility] DATE CREATED AUTHOR AUTHOR'S ORGANIZ ATION 01/12/2025 [facility] REASON FOR VISIT (unrecogniz ed section and [...] BE BASED ON THE PRIMARY CLINICAL RECORDS. [employer] [facility]. provides no warranty or guarantee of the accuracy or completeness of information in this document.
[2025-01-18 12:49] LABS: Thyroid Stimulating Hormone 0.066 uIU/mL (0.358-3.740)
== END 2025-01-18 11:57 | disposition home or self-care (01) ==
PROVIDERS: Visit Provider Internal Medicine
DX: E06.3 Autoimmune thyroiditis (principal)
CPT/HCPCS: 36415; 84443